=== PATIENT | male | born 1940 | race Caucasian/White ===

== ENCOUNTER → 2023-07-08 | Outpatient (CLI) | payer SELFPAY ==
[2023-07-08 17:30] LABS: Absolute Lymphocyte Count 1.78 X10^3/uL (0.83-4.51); Basophil# 0.04 X10^3/uL; Basophil% 0.5 % (0-1); Eosinophil# 0.37 X10^3/uL; Eosinophils% 4.6 % (0-5); Hematocrit 44.6 % (40-54); Hemoglobin 14.6 g/dL (13.0-16.5); Lymphocyte # 1.78 X10^3/ul (0.83-4.51); Lymphocyte % 22.2 % (19-41); Mean Corp Hgb Conc 32.7 g/dL (32-36); Mean Corpuscular Hgb 31.8 pg (27.0-32.0); Mean Corpuscular Volume 97.2 fL (80-94); Mean Platelet Vol. 10.5 fl (6.2-12.0); Monocyte# 0.78 X10^3/uL; Monocyte% 9.7 % (0-10); NRBC Flagged by Analyzer 0 % (0-5); Neutrophil # 4.99 X10^3/uL (2.7-7.7); Neutrophil % 62.4 % (47-70); Platelet Count 302 K/mm3 (150-450); RBC Distribution Width CV 14.8 % (11.6-14.6); RBC Distribution Width SD 53.4 fl (35.1-43.9); Red Blood Count 4.59 M/mm3 (4.6-6.2)
[2023-07-08 17:53] LABS: ALB/GLOB Ratio 0.9 RATIO (0.9-2.4); AST(SGOT) 23 U/L (15-37); Alanine Aminotransfer ALT/SGPT 26 U/L (16-61); Albumin, Serum 3.7 g/dL (3.2-5.0); Alkaline Phosphatase 94 U/L (45-117); Anion Gap 6 (5-15); BUN 18 mg/dL (7-18); Calcium,Total 9.3 mg/dL (8.5-10.1); Chloride 106 mmol/L (98-107); Cholesterol 226 mg/dL (200); EST Glomerular Filtration Rate 62 mL/min (>60); Est Glom Filt Rate - Afr Amer 75 mL/min (>60); Glucose 96 mg/dL (74-106); High Density Lipoprotein 31 mg/dL; Protein, Total 7.7 g/dL (6.4-8.2); Sodium Level 138 mmol/L (136-145); Triglycerides 304 mg/dL; Very Low Density Lipoprotein 61 mg/dL (5-40)
== END | disposition home or self-care (01) ==
LOC: BFHLAB 16:18
PROVIDERS: PCP Nurse Practitioner Family; Referring Provider Nurse Practitioner Family; Visit Provider Nurse Practitioner Family
DX: I10 Essential (primary) hypertension (principal); N40.0 Benign prostatic hyperplasia without lower urinary tract symptoms; E78.5 Hyperlipidemia, unspecified
CPT/HCPCS: 36415; 80053; 80061; 84153; 85025; G0103

== ENCOUNTER 2024-04-20 07:26 | Observation (INO) | payer MEDICARE, OTHER, SELFPAY ==
--- NOTE | 2024-04-07 12:11 | EKG12_ITS ---
Test Reason : PRE OP Blood Pressure : */* mmHG Vent. Rate : 63 BPM Atrial Rate : 63 BPM P-R Int : 140 ms QRS Dur : 86 ms QT Int : 378 ms P-R-T Axes : 19 11 -15 degrees QTcB Int : 386 ms Normal sinus rhythm Normal ECG Confirmed by LEW BARBOZA, HERMINIO ([id number]), assignment editor LAZARO GALVEZ ([id number]) on 04/08/2024 7:38:59 AM Referred By: Robe Murillo Confirmed By: HERMINIO HACKETT MD
[2024-04-07 13:10] LABS: Absolute Lymphocyte Count 1.43 X10^3/uL (0.83-4.51); Absolute Neutrophil Count 4.5 X10^3/uL (2.0-7.7); Basophil# 0.04 X10^3/uL; Basophil% 0.6 % (0-1); Eosinophils% 5.7 % (0-5); Hematocrit 43.8 % (40-54); Hemoglobin 14.4 g/dL (13.0-16.5); Lymphocyte # 1.43 X10^3/ul (0.83-4.51); Lymphocyte % 20.3 % (19-41); Mean Corp Hgb Conc 32.9 g/dL (32-36); Mean Corpuscular Hgb 31.7 pg (27.0-32.0); Mean Corpuscular Volume 96.5 fL (80-94); Monocyte# 0.66 X10^3/uL; Monocyte% 9.3 % (0-10); NRBC Flagged by Analyzer 0 % (0-5); Neutrophil # 4.52 X10^3/uL (2.7-7.7); Platelet Count 259 K/mm3 (150-450); RBC Distribution Width CV 14.9 % (11.6-14.6); RBC Distribution Width SD 52.9 fl (35.1-43.9); Red Blood Count 4.54 M/mm3 (4.6-6.2); White Blood Count 7.1 K/mm3 (4.4-11.0)
[2024-04-07 13:28] LABS: Magnesium 2.3 mg/dL (1.6-2.6)
[2024-04-07 13:32] LABS: Albumin, Serum 3.7 g/dL (3.2-5.0); Anion Gap 5 (5-15); BUN 16 mg/dL (7-18); BUN/Creat Ratio 13.6 RATIO (10-20); Calcium,Total 9.4 mg/dL (8.5-10.1); Chloride 109 mmol/L (98-107); Creatinine, Serum 1.18 mg/dL (0.70-1.30); EST Glomerular Filtration Rate 63 mL/min (>60); Est Glom Filt Rate - Afr Amer 76 mL/min (>60); Glucose 121 mg/dL (74-106); Sodium Level 141 mmol/L (136-145)
--- NOTE | 2024-04-14 16:08 | HP.PCM_ITS ---
History and Physical History and Physical Patient Name: Stalin Cardenas : 1940From:? PINKY GOMEZ PA-C DATE OF PRE-OPERATIVE EXAM: 04/13/2024 DATE OF SURGERY:? 04/20/2024 SCHEDULED PROCEDURE:? Direct anterior left total hip arthroplasty HISTORY OF PRESENT ILLNESS: Preoperative history and physical exam was performed on April 13, 2024.? Patient has had ongoing pain for approximately 8 months.? He had similar symptoms in his other side in which she underwent a right total hip arthroplasty in 2018.? He has no complaints of the right hip today.? Patient's pain can reach 8/10.? Pain has been intermittent, dull, sharp, and stabbing.? Pain is increased with walking and going up and down stairs.? Patient has had history of shingles in the left leg in 2008 which did result in chronic numbness from the knee down.? Patient has tried rest without relief.? He has tried oral medications including Tylenol without relief.? He has been using a cane and walker for the past several months.? Denies past history of surgery on the left hip.? He does feel the pain is affecting his sleep.? He has difficulty putting on his socks and shoes.? Difficulty with bathing/showering due to the pain.? After failing conservative measures and discussing all treatment options with Dr. Robe Murillo, the patient does wish to proceed with a direct anterior left total hip arthroplasty.? Patient has medical history pertinent for chronic obstructive pulmonary disease, history of DVT, history of pulmonary embolism, and hypertension.? Patient has obtain surgical clearance from the primary care provider Selene Lovett.? Patient has been instructed by the primary care provider to stop the warfarin 5 days prior to surgery.? He will bridge with Lovenox on day 2 and day 3 prior to surgery.? Warfarin will be resumed postoperatively.? Patient denies any recent chest pain, shortness of breath, fevers chills or recent infections. REVIEW OF SYSTEMS: Review Of Systems: Constitutional: Denies change in appetite, fever and weight change. Cardiovasular: Denies chest pain, heart murmur and irregular heartbeat. Respiratory: Denies cough, pneumonia, shortness of breath, tuberculosis and wheezing. Gastrointestinal: Denies constipation, diarrhea, heartburn, nausea, rectal itching, bloody stools and vomiting. Musculoskeletal: Reports leg swelling, but denies pain, trouble walking and weakness. Skin: Reports history of shingles, but denies Raynaud's and tattoo. Neurological: Denies ambulatory dysfunction, dizziness, numbness/tingling and tremor. Psychiatric: Denies anxiety, insomnia and stress. Hematologic/Lymphatic: Reports bleeding/bruising tendency, but denies anemia and past transfusion. Reviewed, no changes. PAST MEDICAL HISTORY: Advance Care Plan: Other Directive, LIVING WILL Effective Date: 07/15/2023 Past Medical History: Medical Problems: Chronic Obstructive Pulmonary Disease (COPD), History Of Blood Clots/ DVT, Pulmonary Embolism, Covid-19 Vaccine, High Blood Pressure Accidents: Other - (05/14/2023) left knee Surgical Hx: Cataracts - (2016) Hip Replacement Rt - (2018) [place] Anesthesia Complications: None Assistive Devices: Cane, Walker Reviewed, no changes. SOCIAL HISTORY: Social History: Marital: .Occupation: Retired.Work Status: Retired.Hand Dominance: Right-handed. Personal Habits:? Cigarette Use: Former.Smokeless Tobacco: Never Used Smokeless Tobacco.E-Cigarette Use: Never used.Alcohol: Occasionally.Drug Use: Denies Use.Enjoy Exercising: Exercises 1-3 X/Week. Reviewed, no changes. VITALS: Ht: 64 Wt: 247lb Wt k.039 BMI: 42.4 BP: 128/72 Pulse: 78 Resp: 16 T: 97.5 T: 36.4C Pain Level: 8 O2SatR: 96 ALLERGIES: Aspirin Penicillins Sulfa MEDICATIONS: Gabapentin 100 mg take 2 capsules by mouth 4 times daily for 30 days., Warfarin Sodium 6 mg take 1 tablet by mouth every day, Amlodipine Besylate/Benazepril Hydrochloride 5-20 mg take 1 capsule by mouth every day, Montelukast Sodium 10 mg take 1 tablet by mouth every day at night, Fluticasone Propionate 50 mcg/Act use 2 sprays by nasal route in the morning and at bedtime, Omeprazole 10 mg 1 by mouth every day, Rescue Inhaler? prn PRE-OP EXAM: General appearance:NORMAL? Other: Eyes: Conjunctivae and lids: NORMAL? Pupils: ERR Ears, Nose, Mouth, and Throat: NORMAL? Other: Inspection of lips, teeth and gums: NORMAL?? Other: Neck: Examination of neck: no masses noted. Respiratory: Assessment of respiratory effort: NORMAL?? Other: ? Auscultation of lungs: clear to auscultation no wheezes, rhonchi or rales. Cardiovascular:? Auscultation of heart: regular rate and rhythm, no murmurs, gallops or rubs. PHYSICAL EXAMINATION: On exam today patient walks with an antalgic gait.? Left hip is 3 mm shorter than the right hip.? Range of motion with hip flexion 70, internal rotation neutral, external rotation 30 with increased pain.? Patient has chronic numbness below the knee due to previous shingles on the left. IMAGING STUDIES: Previous x-rays of the left hip reveals joint space narrowing with marginal osteophyte with pistol plastics engineer deformity of the proximal femur left hip.? He has L4-L5 and L5-S1 disc straight narrowing with degenerative disc disease.? Left hip does appear shorter than the right hip comparing lesser trochanter.? Presence of a right total hip arthroplasty without evidence of loosening or lucencies. IMPRESSION: 1.? Left hip osteoarthritis 2.? Hypertension 3.? Chronic obstructive pulmonary disease 4.? History of DVT 5.? History of pulmonary embolism 6.? Morbid obesity with BMI 42.4 PLAN: Dr. Robe Murillo did discuss and review with the patient all treatment options including surgical versus nonsurgical options.? I will continue plan established by Dr. Robe Murillo.? Patient does wish to proceed with the above-stated procedure.? Potential risks, benefits, and complications of the procedure were discussed in detail including but not limited to , infection, nerve and blood vessel damage, persistent pain, numbness, tingling, paresthesias, blood clot, pulmonary embolism, and requirement for possible further surgery.? The patient expressed full understanding and has no further questions for the doctor.? Patient does agree to proceed with the above-stated procedure and has signed the surgery consent form. POST-OP MEDICATION PLAN: Pain Medications: Postoperative pain regimen will be initiated by Dr. Robe Murillo in the hospital.? Due to patient's BMI greater than 40.0 patient will be placed on doxycycline for 2 weeks postoperatively.? He was advised on the sensitivities to sunlight and should take appropriate precautions.? Also recommend probiotic while on the antibiotic.? Patient will follow our nutrition protocol. DVT Prophylaxis Plan: Patient has been instructed by the primary care provider to stop the Coumadin 5 days prior to surgery.? He will be bridged with Lovenox on day 2 and day 3 prior to surgery.? Coumadin will be resumed postoperatively while in the hospital.? I did advise patient on appropriate follow-ups postoperatively to make sure he is back to therapeutic level.? He voiced understanding. This dictation was created using voice recognition software. Phonetic and/or grammatical errors may exist. ___? I have re-examined the patient.? There are no clinical changes since date of exam. ___? See progress notes for changes. ___? Dictated on admission Date: ? Time: Signature:
[2024-04-20] VITALS (14 sets, daily range): BP systolic 85–132; BP diastolic 46–87; PULSE 63–95; RESP 15–18; TEMP 36.1–36.6; O2SAT 94–100; BMI 39.6; BMI 39.4; BMI 39.5
[2024-04-20 10:18] LABS: INR Fingerstick 1.2
--- NOTE | 2024-04-20 10:55 | PCM.PRE.AN2 ---
ASA Classification* ASA Classification ASA Classification: 3 Assessment & Plan Anesthesia* Anesthesia Assessment Anesthesia Assessment: Discussed sedation and/or anesthesia options, risks, benefits, and alternatives with patient/parents/legal guardian/POA. Questions invited. The patient/parents/legal guardian/POA seems to understand and agrees to proceed with anesthesia plan. Reviewed the physical assessment, medical history, allergy history and patient home medications list prior to surgery/procedure/anesthetic and documented any changes. Performed airway and anesthesia risk assessments. Anesthesia Type Anesthesia Type: Spinal (was on coumadin, INR now 1.2) Anesthesia Focused Assessment* Airway Assessment Mouth opens: >3 cm Mallampati Score: II Focused Labs Anesthesia Preop lab: CBC WBC 7.1 K/mm3 (4.4-11.0) 04/07/24 12:44 04/07/24 RBC 4.54 M/mm3 (4.6-6.2) L 04/07/24 12:44 04/07/24 Hgb 14.4 g/dL (13.0-16.5) 04/07/24 12:44 04/07/24 Hct 43.8 % (40-54) 04/07/24 12:44 04/07/24 Plt Count 259 K/mm3 (150-450) 04/07/24 12:44 04/07/24 CHEMISTRY Potassium 4.0 mmol/L (3.5-5.1) 04/07/24 12:44 04/07/24 Sodium 141 mmol/L (136-145) 04/07/24 12:44 04/07/24 Magnesium 2.3 mg/dL (1.6-2.6) 04/07/24 12:44 04/07/24 BUN 16 mg/dL (7-18) 04/07/24 12:44 04/07/24 Creatinine 1.18 mg/dL (0.70-1.30) 04/07/24 12:44 04/07/24 Glucose 121 mg/dL (74-106) H 04/07/24 12:44 04/07/24 COAG Pre-Assessment Diagnosis/Proposed Procedure Planned Operative Procedure(s): (L) Total Hip Anterior Approach Anesthesia History 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 When Was Last Pacemaker Check QUESTION #4 FULL TEXT: You/Your Family Experience fever (hyperthermia) with Anesthesia Last Oral Intake Last Oral intake: Last Oral Intake NPO since Meds taken in AM with sips of water? Meds patient instructed to take am of surgery PONV PONV - learning and development manager: PONV - learning and development manager Female No 03/27/24 11:34 HX of Motion Sickness No 03/27/24 11:34 HX of N/V After Surgery No 03/27/24 11:34 Non-Smoker Yes 03/27/24 11:34 Duration of Surgery greater Yes 03/27/24 11:34 than 60 minutes Number of Risk Factors 2 03/27/24 11:34 PONV Score Moderate Risk 03/27/24 11:34 Height & Weight Height & Weight: Anesthesia: Height & Weight Weight: 112.037 kg 04/17/24 07:37 Respiratory Assessment Respiratory Assessment - learning and development manager: Respiratory Tract Infection Hx - learning and development manager Hx Respiratory Tract Infection No 03/27/24 11:34 STOP Sleep Apnea STOP Sleep Apnea - learning and development manager: STOP Sleep Apnea - learning and development manager Hx Hypertension Yes 03/27/24 11:34 Hx Sleep Apnea No 03/27/24 11:34 CPAP BIPAP Do you snore loudly (louder No 03/27/24 11:34 than talking or can be heard Do you often feel tired/ No 03/27/24 11:34 fatigued/ sleepy during daytime? Has anyone observed you stop No 03/27/24 11:34 breathing during sleep? STOP Results Negative 03/27/24 11:34 QUESTION #5 FULL TEXT : Do you snore loudly (louder than talking or can be heard through closed doors)? 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 Specify any problems Hx of Preganancy in last 3 N/A 03/27/24 11:34 Months Nurse Filling Out Transfusion VLEHMAN 03/27/24 11:34 & Questions: Date: 03/27/24 03/27/24 11:34 Time: 11:44 03/27/24 11:34 Patient unable to answer at this time (ie. confused, unrespo /Reproduction History /Reproductive History - learning and development manager: /Reproductive Hx- learning and development manager Hx Now No 03/27/24 11:34 Gestational Age (in weeks): EDC: Hx Hx Para Hx Section SAB Active Medications Active Medications: Current Medications Generic Name Dose Route Start Last Admin Trade Name Freq PRN Reason Stop Dose Admin Acetaminophen 1,000 mg 04/20/24 12:30 Acetaminophen 500 Mg Tablet PO 04/20/24 12:31 X1 ONE Acetaminophen 1,000 mg 04/20/24 14:00 Acetaminophen 500 Mg Tablet PO Q8 [facility] Tranexamic Acid 2,000 mg/ 0 mg 04/20/24 12:30 Sodium Chloride 100 ml OPERA.SITE 04/20/24 12:31 X1 ONE Sodium Chloride 78.4 ml/ 0 ml 04/20/24 12:30 Ropivacaine 200 mg/ IV 04/20/24 12:31 Epinephrine HCl 0.6 mg/ X1 ONE Morphine Sulfate 5 mg Dexamethasone Sodium Phosphate 10 mg 04/20/24 12:30 Dexamethasone 10 Mg/Ml Vial IV 04/20/24 12:31 X1 ONE Doxycycline Monohydrate 100 mg 04/21/24 13:00 Doxycycline 100 Mg Capsule PO BID [facility] Enteral Nutritional Formula 237 ml 04/20/24 08:00 Ensure Surgery 237 Ml Liquid PO TIDCM [facility] Famotidine 20 mg 04/20/24 10:00 Famotidine 20 Mg Tablet PO DAILY [facility] Fluticasone Propionate 2 spray 04/20/24 07:25 Fluticasone 0.05% 1 [place] Nasal.Sry NASAL Q12H [facility] Gabapentin 600 mg 04/20/24 12:30 Gabapentin 600 Mg Tablet PO 04/20/24 12:31 X1 ONE Gabapentin 300 mg 04/20/24 07:30 Gabapentin 300 Mg Capsule PO Q12H [facility] Lactated Ringer's 1,000 mls @ 999 mls/hr 04/20/24 12:30 IV 04/20/24 13:30 .Q1H1M [facility] Clindamycin Phosphate 900 mg in 50 mls @ 75 mls/hr 04/20/24 12:30 Cleocin IV 04/20/24 13:09 PREOP ONE Vancomycin HCl 1,750 mg/ 535 mls @ 250 mls/hr 04/20/24 11:00 Sodium Chloride IV 04/20/24 13:08 PREOP ONE Magnesium Sulfate 1 gm/ 102 mls @ 408 mls/hr 04/20/24 12:30 Dextrose IV 04/20/24 12:44 X1 ONE Clindamycin Phosphate 600 mg in 50 mls @ 100 mls/hr 04/20/24 07:30 Cleocin IV 04/20/24 19:59 Q6H GABE Vancomycin HCl 1,750 mg/ 285 mls @ 250 mls/hr 04/20/24 07:26 Dextrose IV 04/20/24 08:25 RX TO DOSE ONE Insulin Human Lispro 1 - 6 unit 04/20/24 12:30 Insulin Lispro 100 Unit/Ml Insuln.Pen SC 04/20/24 18:30 Q4H PRN PRN BG>/= 180, SEE PROTOCOL Protocol Ketorolac Tromethamine 15 mg 04/20/24 07:26 Ketorolac 15 Mg/Ml Vial IV 04/22/24 07:27 Q6H PRN PRN Pain Score 1-5 Montelukast Sodium 10 mg 04/20/24 22:00 Montelukast 10 Mg Tablet PO QHS [facility] Morphine Sulfate 2 - 4 mg 04/20/24 07:26 Morphine 2 Mg/Ml Syringe IV Q2H PRN PRN Pain Score 4-10 Non-Formulary Medication 90 mcg 04/20/24 07:25 Albuterol INHALATION 4X/DAY PRN wheezing Non-Formulary Medication 1 cap 04/20/24 10:00 Amlodipine-Benazepril PO DAILY [facility] Ondansetron HCl 4 mg 04/20/24 07:26 Ondansetron 4 Mg/2 Ml Vial IV Q8H PRN PRN NAUSEA Pantoprazole Sodium 10 mg 04/20/24 10:00 Pantoprazole Sodium 20 Mg Tablet PO DAILY [facility] Promethazine HCl 12.5 mg 04/20/24 07:26 Promethazine 25 Mg/Ml Syringe IM Q6H PRN PRN NAUSEA/VOMITING Protocol Senna/Docusate Sodium 2 tablet 04/20/24 10:00 Senna/Docusate Sodium 1 Tablet PO BID [facility] Tamsulosin HCl 0.4 mg 04/20/24 10:00 Tamsulosin Hcl 0.4 Mg Capsule PO DAILY [facility] Tramadol HCl 50 - 100 mg 04/20/24 07:26 Tramadol 50 Mg Tablet PO Q6H PRN PRN Pain Score 4-10 Warfarin Sodium 6 mg 04/21/24 10:00 Warfarin 6 Mg Tablet PO DAILY [facility] Medical History Wears dentures Walker as ambulation aid Ambulates with cane Prostate disease High cholesterol Pulmonary embolism DVT (deep venous thrombosis) Easy bruising Gastric reflux Former smoker COPD (chronic obstructive pulmonary disease) History of edema Hypertension Home Medications ?Medication ?Instructions ?Recorded ?Last Taken ?Type albuterol 90 mcg/actuation aerosol 90 mcg inhalation 4X/DAY PRN 03/27/24 Unknown History inhaler wheezing amlodipine 5 mg-benazepril 20 mg 1 cap PO DAILY 03/27/24 Unknown History capsule fluticasone propionate 50 2 spray intranasal Q12H 03/27/24 Unknown History mcg/actuation nasal spray,suspension gabapentin 100 mg capsule 300 mg PO Q12H 03/27/24 Unknown History montelukast 10 mg tablet 10 mg PO QHS 03/27/24 Unknown History omeprazole 10 mg capsule,delayed 10 mg PO DAILY 03/27/24 Unknown History release tamsulosin 0.4 mg capsule (Flomax) 0.4 mg PO DAILY 03/27/24 Unknown History warfarin 6 mg tablet 6 mg PO DAILY 03/27/24 Unknown History Allergy/AdvReac Type Severity Reaction Status Date / Time Penicillins (PCN) Allergy Intermediate Rash Verified 03/27/24 11:22 Sulfa (Sulfonamide Allergy Mild KIDNEY Verified 03/27/24 11:22 Antibiotics) CRYSTALS aspirin (ASA) Allergy Shortness Verified 03/27/24 11:22 of breath Surgical History History of cataract extraction History of hip replacement Social History Smoking Status: Former smoker Review of Systems (Anesthesia) ROS Narrative System reviewed and no additional complaints, except as documented.
[2024-04-20] MEDS: Acetaminophen 500 MG Tablet 1000 MG PO ×2 (10:56→22:02)
[2024-04-20] MEDS: Magnesium 1 GM over 15 mins IV (10:56)
[2024-04-20] MEDS: Gabapentin 600 MG Tablet PO (10:56)
[2024-04-20] MEDS: Lactated Ringers 1,000 ML 999 ML IV (10:56)
[2024-04-20] MEDS: Vancomycin HCl 1,750 MG in 0.9% Normal Saline (500mL Bag) 500 ML 250 MG IV (11:27)
[2024-04-20 12:13] LABS: Bedside Glucose 151 mg/dL (74-106)
[2024-04-20] MEDS: Clindamycin 900 MG/50 ML BAG 75 MG IV (12:23)
--- NOTE | 2024-04-20 12:30 | HIP_PTH ---
PATIENT: FREDO CLARK LOC: [facility] U#:[id number] AGE/SX: 84/M ROOM: MA315 RE04/20/[address]: Dr. Robe Murillo MD : 1940 BED: 1 DIS: 04/22/2024 SPEC #: [id number] RECD: 04/20/24 18:12 STATUS: HILARIA SCHWAB #: [id number] ANA: 04/20/24 12:[address]: Robe Murillo DEPT: SURGICAL PATHOLOGY RECD BY: Marina Werner ENTERED: 04/21/24 09:39 SP TYPE: TOTAL HIP OTHR DR: DO Dr. Loreta Flores MD Rachel Edgar, ACCOUNTING MANAGER-C Tissues: Hip, NOS Procedures: Decalcification bone/plaque Surgery Specimen Level IV HEADER OPERATION: Total hip anterior approach PRE-OP DIAGNOSIS: Left hip osteoarthritis TISSUE SUBMITTED: Left hip bone and tissue MICROSCOPIC DIAGNOSIS Left hip bone and soft tissue, total hip replacement/resection: Femoral head with mild degenerative osteoarthritic changes. SJ: 04/24/2024 MICROSCOPIC DESCRIPTION Slides are reviewed. GROSS DESCRIPTION Received is one container labeled with the patient's name and designated bone and soft tissue left hip. The specimen consists of a krueger femoral head. The femoral head measuring in length 5.5cm and in diameter 5cm. The surface of the head shows that much of the cartilage has been rubbed off and an area is marked for sectioning and offer proper decalcification is submitted in cassette 1. A separate fragment of bone measuring 4.0 x 3.0 x 1.0cm is also present in the container as well as some soft tissue fragments, reddish and whiteish. The soft tissue fragments aggregate to approximately 2-3cm and community representative sections are submitted in cassette 2. NANY. 04/21/2024 TC: 5 CPT: 79266,54006
[2024-04-20] MEDS: dexAMETHasone 10 MG/ML Vial IV (13:04)
--- NOTE | 2024-04-20 13:30 | RAD_ITS ---
PROCEDURE: Fluoroscopy less than 1 hour REASON FOR EXAM: Hip prosthesis, arthritis TECHNIQUE: 4 fluoroscopic images were submitted. Fluoroscopy time was 7.2 seconds. Peak skin radiation dose was 1.7 mGy. COMPARISON: 04/20/2024 FINDINGS: See impression RAD/Hip 1 view with Pelvis IMPRESSION: Placement of a left hip prosthesis with anatomic alignment. See operative report for further details. Reading Location: [facility]
[2024-04-20] MEDS: TXA in NS 100ml (Placed in Wound) OPERA.SITE (13:50)
[2024-04-20] MEDS: Joint Pain Solution (NO KETOROLAC) IV (13:50)
--- NOTE | 2024-04-20 14:04 | PCM.OPRPT ---
Operative Report (Standard) Operative Information Date of Procedure: 04/20/24 Pre-Operative Diagnosis: Left hip primary osteoarthritis Post-Operative Diagnosis: Left hip primary osteoarthritis Surgery/Procedure Performed: Left minimally invasive direct anterior hip replacement media intern: Yes Grinding [employer] Pol[employer] Laborer: Sal Castillo Tasks completed by credentialing assistant: Other (See body of operative report) Additional child care center assistant director?: No Type of Anesthesia: Spinal RN Documented Start/Stop Times: Operation Date: 04/20/24 12:30 Case Time Into Pre-Op 04/20/24 10:13 Anesthesia Start 04/20/24 12:23 Into Room 04/20/24 12:23 Procedure Start 04/20/24 12:53 Procedure End 04/20/24 14:27 Anesthesia End 04/20/24 14:33 Out of Room 04/20/24 14:33 Into Recovery 04/20/24 14:39 Procedure Start Time: 12:53 Procedure Stop Time: 14:27 Select all DRAINS/GRAFTS/IMPLANTS that apply: Prosthetic device Prosthetic device details: See body of operative report Special Medications: Cleocin and vancomycin Estimated Blood Loss: 300 mL Fluids Replaced: 1300 mL crystalloid Specimen collected: Yes Description of specimen(s) removed: Bony cuts Description of surgery: Components used: 1. Insignia [place] femoral stem size 3 high offset 2. Anisa trident 2 acetabular shell size 48 mm 3. Anisa X3 polyethylene 38D 4. Anisa Biolox delta 28 mm, +4 mm femoral head 5. Anisa MDM alpha code E cobalt-chromium liner Brief history operative indications: 84 yo m who failed conservative measures for their hip osteoarthritis. X-rays were consistent with osteoarthritis including joint space narrowing, osteophyte formation and subchondral cysts. Total hip replacement was discussed with the patient with risks and benefits including but not limited to blood loss, DVTs, PEs, neurovascular damage, dislocation, general risks of anesthesia including loss of life. Patient demonstrated an understanding medical clearance is obtained the patient was consented for surgery. Procedure: On the date of procedure the patient's L hip was marked in the preoperative area. Patient was then taken back to the operating room where anesthesia assumed control of the C-spine and airway and administered anesthetic. Patient was transferred to the operating table and placed in the supine position. The hips were placed at the break of the bed and a sacral bump was placed. The L lower extremity was then prepped out in a sterile fashion using chlorhexidine while the surgeon scrubbed. The PA was vital in the positioning of the patient. Upon reentering the room the L lower extremity was draped in the standard orthopedic fashion and the incision was marked. A timeout was called and everyone agreed upon the side, the site, the procedure be performed, antibody given, and patient's identity. At this time incision was made through skin, subcutaneous tissue, and fat down to fascia. The fascia was then incised and the TFL was retracted laterally. A retractor was placed on the lateral border of the femoral neck. Attention was directed to the inferior portion of the approach and all crossing vessels were identified and appropriately coagulated. A retractor was then placed on the medial portion of the femoral neck. The anterior capsule was then cleared of all soft tissue and then H shaped capsulotomy was made. The retractors were then placed inside the capsule. The femoral neck was identified and a cleanup cut was made. At this time a power corkscrew was used to remove the femoral head. Attention was then turned toward the acetabulum where the soft tissues were appropriately retracted and the acetabulum was sequentially reamed to 48 mm. A 48 mm cup was then selected and impacted into place. Acetabular liner was impacted into place and locking mechanism was verified. The position of the acetabular cup was then verified under live fluoroscopy. Attention was then turned to the femur. Soft tissue releases on the medial and lateral femoral neck were appropriately done, the leg was externally rotated and lateralized. A Aguilera retractor was placed medially and proximally to the greater trochanter this allowed appropriate visualization and exposure of the femoral canal. Rongeour was then used to remove excess lateral bone. A canal finder and entry broach were used to open the proximal canal. Once we verified we were down the femoral canal we subsequently broached up to a size 3 femur. The appropriate neck was placed in the previously selected head was trialed with a 4 mm neck. Traction was pulled and the hip was reduced with internal rotation. Once it was appropriately reduced and stability was checked. There was minimal shuck, equal leg lengths and appropriate stability with hyperextension and external rotation as well as with 90? flexion and internal rotation. Fluoroscopy was then also used to verify the position of the components and leg lengths using the contralateral side for comparison. The trial components were then dislocated the proximal femur was again exposed and the components were removed from the wound. The final components were verified and opened. The wound was copiously irrigated out with normal saline. The acetabulum was checked for any residual debris. The final components were placed and impacted. Traction and internal rotation were again used to reduce the hip. After adequate reduction the hip remained stable with appropriate leg lengths. The final components were once again checked with live fluoroscopy and were found to be satisfactory. The wound was then copiously irrigated with normal saline once more, and hemostasis was obtained. Closure was then done using #1 Vicryl runner to close the fascia. A 2-0 vicryl interuppted sutures were used to close the subcutaneous skin. A 3-0 Monocryl and Steri-Strips were used for final skin closure. A Silverlon dressing was placed. Patient was awakened by anesthesia and transferred to the [facility]. Patient was then transferred to the PACU for recovery. Postoperative plan: Patient will get 24 hours postop antibiotics. Patient will get in-house physical therapy and will be weight-bear as tolerated. Patient will follow up in office in 2 weeks for a wound check and x-rays. Resume Coumadin for DVT prophylaxis. Surgical Findings: Stable hip Complications Complications: No Admit VTE Documentation VTE Present on Admission: No VTE Mechan Device Prophylaxis: SCD's and Thigh High NITESH Hose VTE Pharm Prophylaxis ordered?: Yes
--- NOTE | 2024-04-20 14:44 | PCM.POST.ANE ---
Anesthesia: Postop Eval I Current Vital Signs Temperature: 97 F Pulse Rate: 79 Blood Pressure: 89/46 Respiratory Rate: 18 Pulse Ox: 96 Oxygen Delivery Method: Room Air Assessment Airway patent: Yes Spontaneous unlabored respirations: Yes Mental status: Awake and Calm nausea: No Vomiting: No Anesthesia Complication: No Fluid Hydration Crystalloid volume administer (ml): 1,600 Total IV fluid infused: 1,600 Progress Note Anesthesia document: Postop Eval 1 completed: Yes
--- NOTE | 2024-04-20 14:50 | RAD_ITS ---
EXAM: HIP MIN 2 VIEWS (PORTABLE) CLINICAL HISTORY: Left total hip replacement. COMPARISON: Comparison is made with prior intraoperative images. TECHNIQUE: Two views were obtained. FINDINGS: Status post left total hip replacement. There is good alignment. Postoperative soft tissue changes. RAD/Hip Min 2 Views (Portable) IMPRESSION: Status post left total hip replacement. There is good alignment. Postoperative soft tissue changes. Reading Location: [facility]
--- NOTE | 2024-04-20 15:55 | POSTOPAN2_ITS ---
Anesthesia Postop Eval I Sum Postop Eval Completion status Anesthesia document: Postop Eval 1 completed: Yes Anesthesia Postop Eval I Summary Anesthesia Postop Eval I Summary: Anesthesia Postop Eval I: Assessment Summary Airway patent Yes 04/20/24 14:45 DATE [email or web address] Spontaneous unlabored Yes 04/20/24 14:45 DATE [email or web address] respirations Mental status Awake,Calm 04/20/24 14:45 DATE [email or web address] nausea No 04/20/24 14:45 DATE [email or web address] Vomiting No 04/20/24 14:45 DATE [email or web address] Anesthesia Postop Eval I: Fluid Summary Crystalloid volume administer 1,600 04/20/24 14:45 DATE [email or web address] (ml) Colloids volume administered ( ml) Blood Product volume administered (ml) Total IV fluid infused 1,600 04/20/24 14:45 DATE [email or web address] Anesthesia Postop Eval I: Summary Notes Anesthesia Complication No 04/20/24 14:45 DATE [email or web address] Anesthesia Complication Comment: Post-operative progress note Anesthesia: Postop Eval II Evaluation Mental status: Awake Pain Level: 0 nausea: No Vomiting: No
--- NOTE | 2024-04-20 15:55 | PCM.POSTANE2 ---
Anesthesia Postop Eval I Sum Postop Eval Completion status Anesthesia document: Postop Eval 1 completed: Yes Anesthesia Postop Eval I Summary Anesthesia Postop Eval I Summary: Anesthesia Postop Eval I: Assessment Summary Airway patent Yes 04/20/24 14:45 [email or web address] Spontaneous unlabored Yes 04/20/24 14:45 [email or web address] respirations Mental status Awake,Calm 04/20/24 14:45 [email or web address] nausea No 04/20/24 14:45 PET [email or web address] Vomiting No 04/20/24 14:45 [email or web address] Anesthesia Postop Eval I: Fluid Summary Crystalloid volume administer 1,600 04/20/24 14:45 [email or web address] (ml) Colloids volume administered ( ml) Blood Product volume administered (ml) Total IV fluid infused 1,600 04/20/24 14:45 PET [email or web address] Anesthesia Postop Eval I: Summary Notes Anesthesia Complication No 04/20/24 14:45 [email or web address] Anesthesia Complication Comment: Post-operative progress note Anesthesia: Postop Eval II Evaluation Mental status: Awake Pain Level: 0 nausea: No Vomiting: No
[2024-04-20] MEDS: 0.9% Normal Saline (1000mL) 1,000 ML 15 ML IV (16:11)
[2024-04-20] MEDS: Tamsulosin HCl 0.4 MG Capsule PO (17:30)
[2024-04-20] MEDS: Pantoprazole Sodium 20 MG Tablet PO (17:30)
[2024-04-20] MEDS: Ensure Surgery 237 ML LIQUID PO (17:33)
[2024-04-20] MEDS: Clindamycin 600 MG/50 ML BAG 100 MG IV (17:34)
--- NOTE | 2024-04-20 20:59 | PCM.PN.HOSP ---
Reason for Visit Reason for Visit: Diagnoses Encounter for other preprocedural examination (04/20/24) Subjective Subjective 84-year-old male with a history of hypertension, GERD, BPH, VTE who presented [facility] 04/20/2024 for left hip arthroplasty. Hospitalist consulted for postoperative medical management. Patient evaluated at bedside and reports overall he is feeling well but does have to urinate, no other new acute complaints Objective Data Objective Data Vital Signs: Vital Signs Temp Pulse Resp BP Pulse Ox O2 Del Method O2 Flow Rate 97.9 F 95 15 132/69 H 94 Room Air 4 04/20/24 20:33 04/20/24 20:33 04/20/24 20:33 04/20/24 20:33 04/20/24 20:33 04/20/24 20:33 04/20/24 16:27 Oxygen Flow Rate (L/min) 4 Oxygen Delivery Method Room Air Weight: 111.5 kg Body Mass Index (BMI) 39.4 Intake & Output: Intake and Output for Last 24 Hours 04/18/24 04/19/24 04/20/24 23:59 23:59 23:59 Intake Total 2737 / 2737 Balance 2737 / 2737 Lab / Micro Data 04/07/24 12:44 04/07/24 12:44 Labs: Laboratory Results - last 24 hr 04/20/24 10:14: POC PT 14.0, INR 1.2 04/20/24 10:53: POC Glucose 151 H Micro: Microbiology 04/07/24 12:44 Nasal Secretion Nasal Screen MRSA/MSSA - Final Radiography Diagnostic Testing: Radiology Impression Hip/Pelvis X-Ray 04/20/24 13:30 IMPRESSION: Placement of a left hip prosthesis with anatomic alignment. See operative report for further details. [facility] 04/20/24 14:50 IMPRESSION: Status post left total hip replacement. There is good alignment. Postoperative soft tissue changes. Reading Location: [facility] Physical Exam Narrative General: Alert, oriented, no apparent distress HEENT: Atraumatic, normocephalic Eyes: extraocular movements grossly intact Neck: Supple Respiratory: normal respiratory effort Cardiovascular: no edema appreciated GI: nondistended Extremities: Moving all extremities Neuro: No overt focal neurological deficits Psych: Cooperative Assessment & Plan Assessment/Plan (1) Prostate disease: PLAN: Plan # History of VTE -Coumadin was stopped 5 days prior to surgery, patient will be bridged with Lovenox per Ortho documentation and Coumadin resumed postoperatively. #GERD -Continue PPI #Chronic BPH with obstruction -Continue home medications #Hypertension -Blood pressure little soft postoperatively at 97/51 but improved to 132/69 # Left hip osteoarthritis -Status post left minimally invasive direct anterior hip replacement with Dr. Murillo 04/20/2024 -PT/OT -Management per primary #DVT ppx: At timing to discretion of primary Loreta Herrera MD Time spent in the patient's overall evaluation, decision-making process, review of diagnostic data, adjustment of management, discussion with other providers, nursing and ancillary staff involved in patient's care documentation, 15 Minutes Charges/Coding Visit Charges Office Visits / Consults: 28880 OV L2 Est 10min
[2024-04-20] MEDS: Senna/Docusate Sodium 1 Tablet 2 TABLET PO (22:03)
[2024-04-20] MEDS: Gabapentin 300 MG Capsule PO (22:03)
[2024-04-20] MEDS: Montelukast 10 MG Tablet PO (22:03)
[2024-04-20] MEDS: Fluticasone 0.05% 1 SPRAY NASAL.SRY 2 SPRAY NASAL (22:06)
[2024-04-20] MEDS: Vancomycin HCl 1,250 MG in 0.9% Normal Saline (250mL Bag) 250 ML 167 MG IV (23:26)
[2024-04-21 00:58] VITALS: BMI 39.5
[2024-04-21] MEDS: Clindamycin 600 MG/50 ML BAG 100 MG IV ×2 (01:31→08:54)
[2024-04-21 03:45] VITALS: BMI 39.5
[2024-04-21 06:38] LABS: Hematocrit 37.5 % (40-54); Hemoglobin 12.2 g/dL (13.0-16.5); Mean Corp Hgb Conc 32.5 g/dL (32-36); Mean Corpuscular Hgb 31.7 pg (27.0-32.0); Mean Corpuscular Volume 97.4 fL (80-94); Mean Platelet Vol. 10.3 fl (6.2-12.0); Platelet Count 246 K/mm3 (150-450); RBC Distribution Width CV 14.6 % (11.6-14.6); RBC Distribution Width SD 52.3 fl (35.1-43.9); Red Blood Count 3.85 M/mm3 (4.6-6.2); White Blood Count 16.3 K/mm3 (4.4-11.0)
[2024-04-21 07:11] LABS: Anion Gap 10 (5-15); BUN 18 mg/dL (7-18); BUN/Creat Ratio 14.5 RATIO (10-20); Calcium,Total 9.3 mg/dL (8.5-10.1); Chloride 107 mmol/L (98-107); Creatinine, Serum 1.24 mg/dL (0.70-1.30); EST Glomerular Filtration Rate 59 mL/min (>60); Est Glom Filt Rate - Afr Amer 72 mL/min (>60); Estimated Creatinine Clearance 53.84 ml/min; Glucose 167 mg/dL (74-106); Potassium 4.6 mmol/L (3.5-5.1); Sodium Level 139 mmol/L (136-145)
[2024-04-21 07:29] VITALS: O2SAT 92
--- NOTE | 2024-04-21 07:29 | PN.ORTHO_ITS ---
Subjective Subjective Patient appears to be comfortable in bed. Patient states that he has not yet been up working with physical therapy. Patient denies any shortness of breath, chest pain, calf pain, fever, chills, dizziness, nausea, vomiting. Patient denies any adverse events overnight. Patient states that he is currently getting anterior thigh spasms that can be an 8-10 out of 10. Patient states that the tablet Tylenol is not helping the pain and he would rather have capsules. Patient states that he does not want to take any of the tramadol. Patient was educated on the importance of good pain control. Patient states that at this time he cannot stop pain and keeps having to get up to use the bedside commode rather than going to the restroom. Objective Data Objective Data Vital Signs: Vital Signs Temp Pulse Resp BP Pulse Ox O2 Del Method O2 Flow Rate 97.9 F 95 15 132/69 H 92 Room Air 4 04/20/24 20:33 04/20/24 20:33 04/20/24 20:33 04/20/24 20:33 04/21/24 07:29 04/21/24 07:29 04/20/24 16:27 Oxygen Flow Rate (L/min) 4 Oxygen Delivery Method Room Air Weight: 111.5 kg Body Mass Index (BMI) 39.4 Intake & Output: Intake and Output for Last 24 Hours 04/19/24 04/20/24 04/21/24 23:59 23:59 23:59 Intake Total 2737 / 2737 325 / 325 Balance 2737 / 2737 325 / 325 Lab / Micro Data 04/21/24 05:17 04/21/24 05:17 Labs: Laboratory Results - last 24 hr 04/20/24 10:14: POC PT 14.0, INR 1.2 04/20/24 10:53: POC Glucose 151 H 04/21/24 05:17: WBC 16.3 H, RBC 3.85 L, Hgb 12.2 L, Hct 37.5 L, MCV 97.4 H, MCH 31.7, MCHC 32.5, RDW Std Deviation 52.3 H, RDW Coeff of Therese 14.6, Plt Count 246, MPV 10.3, Sodium 139, Potassium 4.6, Chloride 107, Carbon Dioxide 23.0, Anion Gap 10, BUN 18, Creatinine 1.24, Estim Creat Clear Calc 53.84, Est GFR (MDRD) Af Amer 72, Est GFR (MDRD) Non-Af 59 L, BUN/Creatinine Ratio 14.5, Glucose 167 H, Calcium 9.3 Micro: Microbiology 04/07/24 12:44 Nasal Secretion Nasal Screen MRSA/MSSA - Final Radiography Diagnostic Testing: Radiology Impression Hip/Pelvis X-Ray 04/20/24 13:30 IMPRESSION: Placement of a left hip prosthesis with anatomic alignment. See operative report for further details. Reading Location: [facility] Hip X-Ray 04/20/24 14:50 IMPRESSION: Status post left total hip replacement. There is good alignment. Postoperative soft tissue changes. Reading Location: [id number] Physical Exam Narrative 1. NITESH hose in place bilaterally. 2. SCDs in place bilaterally. 3. Dressing is clean dry and intact. 4. Prevena wound VAC in place. 5. Right hip is soft and supple. 6. Dorsiflexion and plantarflexion are performed actively without pain or restriction. 7. Sensation intact to light touch. 8. Neurovascularly intact overall. 9. Negative Homans bilaterally. Const alert, oriented x3 and no apparent distress Assessment & Plan Assessment/Plan (1) Status post total hip replacement, right: PLAN: 1. DVT prophylaxis: Patient will be on regular dose of preoperative warfarin for DVT prophylaxis. Patient will be wearing NITESH hose for 2 weeks postoperatively. Patient states that he does have concerns that his will not be able to be of much help with the NITESH hose. 2. Pain medications: Patient was instructed that he can take Tylenol 1000 mg every 8 hours [id number] taking no more than 3000 mg in 24 hours. Patient was then instructed to take her tramadol as needed for breakthrough pain. OARRS report was reviewed today. The risk of abuse potential for narcotic pain medication was discussed and reviewed. Patient was advised not to drive a motor vehicle or operate heavy equipment while taking narcotic pain medication. Patient voiced understanding. 3. Constipation: Patient was instructed to take senna as instructed until his first bowel movement to decrease risk of impaction following surgery. Patient was instructed if they have not yet had bowel movement in 3 days to call our office for reevaluation. 4. Physical therapy: Patient has not yet worked with physical therapy. Patient states that he has been up using the bedside commode and has walked to the bathroom once or twice. I would like patient to work with physical therapy for evaluation prior to discharge. Appreciate recommendations for safe and appropriate discharge from physical therapy. 5. Labs: H&H: 12.2/37.5. 6. Incentive spirometer: Patient was encouraged to use incentive spirometer every hour that they are awake for the first week to exercise along decrease risk of postoperative infection. 7. Dressings: Patient currently has wound VAC in place. Prevena wound VAC instructions were given as to keep in place for 1 week. Patient was educated not to get the wound VAC wet and to sponge bathe for 1 week. Patient was educated that this is disposable and then may remove and discard after 1 week. Patient was understanding. 8. Postoperative instructions: Patient will follow postoperative instructions as well as follow-up per [facility] postoperative instructions. 9. Medicines involvement: Appreciate recommendations from medicine for safe and proper discharge. 10. Patient will be on doxycycline for 2 weeks postoperatively due to BMI. Patient was educated on the risk of sunburn while taking doxycycline. Patient was encouraged to take a probiotic while taking doxycycline. Patient voiced understanding. 11. Reactive leukocytosis: White blood cell count was 16.3. Vital signs are afebrile and patient is not experiencing symptoms at this time. 12. GFR: Estimated GFR is 59 which is a drop from preoperative 63. We will avoid nonsteroidal anti-inflammatories at this time. Appreciate recommendations from medicine. 13. I believe that patient would benefit from a another night stay in the hospital. Patient has not yet worked with physical therapy. Appreciate recommendations from physical therapy for safe and proper discharge. Patient does have some concerns with safety going home at this time. Patient states that he is not sure of how much help his will be due to her also having some troubles and potentially not having the strength to help care for him. We will reevaluate patient tomorrow to assess for safe and proper discharge home after working with physical therapy.
[2024-04-21] MEDS: Acetaminophen 500 MG Tablet 1000 MG PO ×2 (08:54→22:07)
[2024-04-21 08:58] VITALS: BP 149/71; PULSE 94; RESP 16; TEMP 36.7
--- NOTE | 2024-04-21 09:52 | CASEMGMT ---
Met with patient to complete LUGO form. LUGO form explained to patient who voiced understanding and signed form. Original form placed in pt?s chart and copy provided to patient. Lucero Alonzo, Discharge Planning Asst
[2024-04-21] MEDS: Tamsulosin HCl 0.4 MG Capsule PO (10:13)
[2024-04-21] MEDS: Fluticasone 0.05% 1 SPRAY NASAL.SRY 2 SPRAY NASAL ×2 (10:14→22:13)
[2024-04-21] MEDS: amLODIPine 5 MG Tablet PO (10:16)
[2024-04-21] MEDS: Famotidine 20 MG Tablet PO (10:16)
[2024-04-21] MEDS: Pantoprazole Sodium 20 MG Tablet PO (10:17)
[2024-04-21] MEDS: Senna/Docusate Sodium 1 Tablet 2 TABLET PO ×2 (10:17→22:07)
[2024-04-21] MEDS: Lisinopril 20 MG Tablet PO (10:18)
[2024-04-21] MEDS: traMADol 50 MG Tablet PO ×2 (10:19→16:19)
[2024-04-21] MEDS: Gabapentin 300 MG Capsule PO ×2 (10:22→22:07)
--- NOTE | 2024-04-21 10:27 | CASEMGMT ---
Social Work- SDOH erroneously triggered by nurse. Pt reports no safety concerns. SW remains available to follow for any other needs. DAVIS Vazquez
--- NOTE | 2024-04-21 10:55 | PCM.PN.HOSP ---
Reason for Visit Reason for Visit: Diagnoses Disorder of prostate, unspecified (04/20/24) Encounter for other preprocedural examination (04/20/24) Presence of right artificial hip joint (04/20/24) Subjective Subjective Saw patient at bedside this morning. Sitting back in bed and mildly fatigued. But otherwise conversing normally. Stated he has ongoing left hip and thigh pain this morning and has not worked with physical therapy yet due to this pain. Pain medication was starting to kick in when I saw him and he was feeling slightly improved. He denied any other new concerns today. Objective Data Objective Data Vital Signs: Vital Signs Temp Pulse Resp BP Pulse Ox O2 Del Method O2 Flow Rate 97.9 F 95 15 132/69 H 92 Room Air 4 04/20/24 20:33 04/20/24 20:33 04/20/24 20:33 04/20/24 20:33 04/21/24 07:29 04/21/24 07:29 04/20/24 16:27 Oxygen Flow Rate (L/min) 4 Oxygen Delivery Method Room Air Weight: 111.5 kg Body Mass Index (BMI) 39.4 Intake & Output: Intake and Output for Last 24 Hours 04/19/24 04/20/24 04/21/24 23:59 23:59 23:59 Intake Total 2737 / 2737 325 / 325 Balance 2737 / 2737 325 / 325 Lab / Micro Data 04/21/24 05:17 04/21/24 05:17 Labs: Laboratory Results - last 24 hr 04/20/24 10:53: POC Glucose 151 H 04/21/24 05:17: WBC 16.3 H, RBC 3.85 L, Hgb 12.2 L, Hct 37.5 L, MCV 97.4 H, MCH 31.7, MCHC 32.5, RDW Std Deviation 52.3 H, RDW Coeff of Therese 14.6, Plt Count 246, MPV 10.3, Sodium 139, Potassium 4.6, Chloride 107, Carbon Dioxide 23.0, Anion Gap 10, BUN 18, Creatinine 1.24, Estim Creat Clear Calc 53.84, Est GFR (MDRD) Af Amer 72, Est GFR (MDRD) Non-Af 59 L, BUN/Creatinine Ratio 14.5, Glucose 167 H, Calcium 9.3 Micro: Microbiology 04/07/24 12:44 Nasal Secretion Nasal Screen MRSA/MSSA - Final Radiography Diagnostic Testing: Radiology Impression Hip/Pelvis X-Ray 04/20/24 13:30 IMPRESSION: Placement of a left hip prosthesis with anatomic alignment. See operative report for further details. Reading Location: [facility] Hip X-Ray 04/20/24 14:50 IMPRESSION: Status post left total hip replacement. There is good alignment. Postoperative soft tissue changes. Reading Location: [facility] Physical Exam Const alert, oriented x3 and no apparent distress Constitutional Narrative: Elderly male, class II obesity, mildly fatigued appearing but otherwise laying back comfortably in bed, conversing normally, in no acute distress. General Appearance: cooperative and comfortable HEENT normocephalic, head/scalp atraumatic, hearing grossly normal bilaterally, nasal mucous membranes and turbinates normal and moist oral mucous membranes Eyes PERRL, EOMs intact bilaterally and conjunctivae normal Neck full ROM Chest inspection of chest normal Resp normal respiratory effort, normal air movement, no use of accessory muscles and clear to auscultation bilaterally Cardio regular rate, regular rhythm, no murmurs and peripheral pulses 2+ throughout GI normal to inspection, nondistended, normoactive bowel sounds, soft to palpation, non-tender and non-distended Back/Spine normal ROM Extremity Extremity Narrative: Left hip with dressing and ice pack in place. Skin no rashes or lesions noted Neuro Speech: speech normal Psych mental status grossly normal Assessment & Plan Assessment/Plan (1) Status post left hip replacement: PLAN: Plan Patient is an 84-year-old male who presented [facility] on 04/20/2024 for planned left hip replacement. Medicine consulted postoperatively for medical management. 1. Left hip osteoarthritis ? Orthopedic surgery primary. S/p left hip replacement on 04/[address] Murillo. Tolerated procedure well, no intraoperative complications. PT/OT/case management following. Further postop management per orthopedics. 2. History of VTE ? Coumadin stopped 5 days prior to surgery. Will be bridged with Lovenox back to therapeutic INR 2-3 for orthopedic documentation and Coumadin resumed postoperatively. 3. GERD ? Continue home PPI. 4. Chronic BPH with obstructive symptoms ? Continue home Flomax. 5. Hypertension ? Blood pressure mildly soft postoperatively but back to baseline by that evening. Continue home amlodipine and lisinopril. DVT prophylaxis: Per primary team Total clinical time spent by myself addressing the patient's medical issues, reviewing all the data, and collaborating with patient's care team: 25 minutes. Charges/Coding Visit Charges Inpatient E&M: 90830 Subs Hosp L1
--- NOTE | 2024-04-21 11:00 | CASEMGMT ---
KATHERINE MENDEZ Assessment: Face to Face with pt for initial transition planning/care coordination assessment. KATHERINE MENDEZ introduced self and role at [facility], pt voices understanding and consents to assessment. Pt is A&O x4 and answers all questions appropriately at this time. Pt sitting up in bed in no distress. Care providers, pharmacy, and demographics verified/updated. Admitting Dx: Total Hip Strata Score: 1 PCP:[facility] Specialists:michael Murillo Preferred Pharmacy: [facility] Insurance: [email or web address], [employer] Pres[employer] Benefit: yes LNOK: Orajanay Noonan, sig other Living Arrangements: Pt lives with sig other in a split level home with 3 steps to enter. Pt reports prior to surgery he was I in ADLs/IADLs. Pt denies concerns at home. Transportation: Pt drives self and denies concerns with transportation. Ora to transport pt until he can drive again. DME:shower chair, 4ww, cane HHC/SNF: Denies hx of Pt states no concerns with going home at time of dc. Therapy has not eval'd pt yet. Pt states he has outpt therapy set up at [facility] on 04/23/24. Pt states no further concerns/needs. CM to follow. Advised pt to ask CM if any further questions/concerns/needs arise, voices understanding. Pt Goal: Home with outpt therapy Plan: TBD pending therapy rohan Hearn RN, CM
[2024-04-21] MEDS: Doxycycline 100 MG CAPSULE PO ×2 (13:36→22:07)
[2024-04-21 14:54] VITALS: BP 127/58; PULSE 93; RESP 17; TEMP 37.3; O2SAT 94
[2024-04-21 20:58] VITALS: BMI 39.5
[2024-04-21 22:00] VITALS: BP 124/66; PULSE 91; RESP 15; TEMP 37.1; O2SAT 95
[2024-04-21] MEDS: Montelukast 10 MG Tablet PO (22:07)
[2024-04-22 05:00] VITALS: BP 133/76; PULSE 97; RESP 16; TEMP 37.6; O2SAT 97
[2024-04-22] MEDS: Acetaminophen 500 MG Tablet 1000 MG PO (05:49)
[2024-04-22 06:05] LABS: Hematocrit 36.7 % (40-54); Mean Corp Hgb Conc 32.7 g/dL (32-36); Mean Corpuscular Hgb 32.6 pg (27.0-32.0); Mean Corpuscular Volume 99.7 fL (80-94); Mean Platelet Vol. 10.2 fl (6.2-12.0); Platelet Count 239 K/mm3 (150-450); RBC Distribution Width CV 15.5 % (11.6-14.6); RBC Distribution Width SD 56.9 fl (35.1-43.9); Red Blood Count 3.68 M/mm3 (4.6-6.2); White Blood Count 18.4 K/mm3 (4.4-11.0)
[2024-04-22 08:30] VITALS: BP 148/79; PULSE 98; RESP 16; TEMP 37; O2SAT 97
[2024-04-22] MEDS: Doxycycline 100 MG CAPSULE PO (08:52)
[2024-04-22] MEDS: Fluticasone 0.05% 1 SPRAY NASAL.SRY 2 SPRAY NASAL (08:53)
[2024-04-22] MEDS: Pantoprazole Sodium 20 MG Tablet PO (08:55)
[2024-04-22] MEDS: amLODIPine 5 MG Tablet PO (08:56)
[2024-04-22] MEDS: Lisinopril 20 MG Tablet PO (08:56)
[2024-04-22] MEDS: Senna/Docusate Sodium 1 Tablet 2 TABLET PO (08:56)
[2024-04-22] MEDS: Famotidine 20 MG Tablet PO (08:56)
[2024-04-22] MEDS: Gabapentin 300 MG Capsule PO (08:58)
--- NOTE | 2024-04-22 11:01 | PCM.PN.HOSP ---
Reason for Visit Reason for Visit: Diagnoses Disorder of prostate, unspecified (04/20/24) Encounter for other preprocedural examination (04/20/24) Presence of right artificial hip joint (04/20/24) Presence of left artificial hip joint (04/20/24) Subjective Subjective Saw patient at bedside this morning. Patient sitting up comfortably in bedside chair and states he feels much improved today from yesterday. Pain control is much better. No other new concerns today. Objective Data Objective Data Vital Signs: Vital Signs Temp Pulse Resp BP Pulse Ox O2 Del Method O2 Flow Rate 99.6 F H 97 16 133/76 H 97 Room Air 4 04/22/24 05:00 04/22/24 05:00 04/22/24 05:00 04/22/24 05:00 04/22/24 05:00 04/22/24 05:00 04/20/24 16:27 Oxygen Flow Rate (L/min) 4 Oxygen Delivery Method Room Air Weight: 111.5 kg Body Mass Index (BMI) 39.4 Intake & Output: Intake and Output for Last 24 Hours 04/20/24 04/21/24 04/22/24 23:59 23:59 23:59 Intake Total 2737 / 2737 375 / 375 Balance 2737 / 2737 375 / 375 Lab / Micro Data 04/22/24 05:32 04/21/24 05:17 Labs: Laboratory Results - last 24 hr 04/22/24 05:32: WBC 18.4 H, RBC 3.68 L, Hgb 12.0 L, Hct 36.7 L, MCV 99.7 H, MCH 32.6 H, MCHC 32.7, RDW Std Deviation 56.9 H, RDW Coeff of Therese 15.5 H, Plt Count 239, MPV 10.2 Micro: Microbiology 04/07/24 12:44 Nasal Secretion Nasal Screen MRSA/MSSA - Final Physical Exam Const alert, oriented x3 and no apparent distress Constitutional Narrative: Elderly male, class II obesity, energy improved today, sitting up in bedside chair, conversing normally, in no acute distress. General Appearance: cooperative and comfortable HEENT normocephalic, head/scalp atraumatic, hearing grossly normal bilaterally, nasal mucous membranes and turbinates normal and moist oral mucous membranes Eyes PERRL, EOMs intact bilaterally and conjunctivae normal Neck full ROM Chest inspection of chest normal Resp normal respiratory effort, normal air movement, no use of accessory muscles and clear to auscultation bilaterally Cardio regular rate, regular rhythm, no murmurs and peripheral pulses 2+ throughout GI normal to inspection, nondistended, normoactive bowel sounds, soft to palpation, non-tender and non-distended Back/Spine normal ROM Extremity Extremity Narrative: Left hip with dressing and ice pack in place. Skin no rashes or lesions noted Neuro Speech: speech normal Psych mental status grossly normal Assessment & Plan Assessment/Plan (1) Status post left hip replacement: PLAN: Plan Patient is an 84-year-old male who presented [facility] on 04/20/2024 for planned left hip replacement. Medicine consulted postoperatively for medical management. 1. Left hip osteoarthritis ? Orthopedic surgery primary. S/p left hip replacement on 04/[address] Murillo. Tolerated procedure well, no intraoperative complications. PT/OT/case management following. Further postop management per orthopedics. Stable for discharge from medical standpoint. 2. History of VTE ? Coumadin stopped 5 days prior to surgery. Will be bridged with Lovenox back to therapeutic INR 2-3 for orthopedic documentation and Coumadin resumed postoperatively. 3. GERD ? Continue home PPI. 4. Chronic BPH with obstructive symptoms ? Continue home Flomax. 5. Hypertension ? Blood pressure mildly soft postoperatively but back to baseline by that evening. Continue home amlodipine and lisinopril. DVT prophylaxis: Per primary team Total clinical time spent by myself addressing the patient's medical issues, reviewing all the data, and collaborating with patient's care team: 25 minutes. Charges/Coding Visit Charges Inpatient E&M: 83723 [facility] Hosp L1
--- NOTE | 2024-04-22 11:27 | PN.ORTHO_ITS ---
Subjective Subjective Patient appears comfortable in bedside chair. Patient states that he has been up and working with physical therapy and feels much more comfortable with going home. Patient denies any shortness of breath, chest pain, calf pain, fever, chills, dizziness, nausea, vomiting. Patient denies any adverse events overnight. Patient states he has not yet had a bowel movement today. Patient states that his pain is well-controlled. Patient states that his plan is for discharge home today. Patient states that both him and his feel more comfortable with him going home. Objective Data Objective Data Vital Signs: Vital Signs Temp Pulse Resp BP Pulse Ox O2 Del Method O2 Flow Rate 98.6 F 98 16 148/79 H 97 Room Air 4 04/22/24 08:30 04/22/24 08:30 04/22/24 08:30 04/22/24 08:30 04/22/24 08:30 04/22/24 08:30 04/20/24 16:27 Oxygen Flow Rate (L/min) 4 Oxygen Delivery Method Room Air Weight: 111.5 kg Body Mass Index (BMI) 39.4 Intake & Output: Intake and Output for Last 24 Hours 04/20/24 04/21/24 04/22/24 23:59 23:59 23:59 Intake Total 2737 / 2737 375 / 375 Balance 2737 / 2737 375 / 375 Lab / Micro Data 04/22/24 05:32 04/21/24 05:17 Labs: Laboratory Results - last 24 hr 04/22/24 05:32: WBC 18.4 H, RBC 3.68 L, Hgb 12.0 L, Hct 36.7 L, MCV 99.7 H, MCH 32.6 H, MCHC 32.7, RDW Std Deviation 56.9 H, RDW Coeff of [place]se 15.5 H, Plt Count 239, MPV 10.2 Micro: Microbiology 04/07/24 12:44 Nasal Secretion Nasal Screen MRSA/MSSA - Final Physical Exam Narrative 1. NITESH hose in place bilaterally. 2. SCDs in place bilaterally. 3. Dressing is clean dry and intact. 4. Prevena wound VAC in place. Minimal drainage in the tubing. 5. left hip is soft and supple. 6. Dorsiflexion and plantarflexion are performed actively without pain or restriction. 7. Sensation intact to light touch. 8. Neurovascularly intact overall. 9. Negative Homans bilaterally. Const alert, oriented x3 and no apparent distress Assessment & Plan Assessment/Plan (1) Status post left hip replacement: PLAN: 1. DVT prophylaxis: Patient will be on regular dose of preoperative warfarin for DVT prophylaxis. Patient will be wearing NITESH hose for 2 weeks postoperatively. Patient states that he does have concerns that his will not be able to be of much help with the NITESH hose. 2. Pain medications: Patient was instructed that he can take Tylenol 1000 mg every 8 hours [id number] taking no more than 3000 mg in 24 hours. Patient was then instructed to take her tramadol as needed for breakthrough pain. OARRS report was reviewed today. The risk of abuse potential for narcotic pain medication was discussed and reviewed. Patient was advised not to drive a motor vehicle or operate heavy equipment while taking narcotic pain medication. Patient voiced understanding. 3. Constipation: Patient was instructed to take senna as instructed until his first bowel movement to decrease risk of impaction following surgery. Patient was instructed if they have not yet had bowel movement in 3 days to call our office for reevaluation. 4. Physical therapy: Patient states that they have worked with physical therapy. Patient states that working with physical therapy went well. Patient states that after working with physical therapy he feels more comfortable and confident that his is able to care for him when he goes home. Appreciate recommendations for safe and appropriate discharge from physical therapy. 5. Labs: H&H: 12.0/36.7. Patient is asymptomatic at this time. 6. Incentive spirometer: Patient was encouraged to use incentive spirometer every hour that they are awake for the first week to exercise along decrease risk of postoperative infection. 7. Dressings: Patient currently has wound VAC in place. Prevena wound VAC instructions were given as to keep in place for 1 week. Patient was educated not to get the wound VAC wet and to sponge bathe for 1 week. Patient was educated that this is disposable and then may remove and discard after 1 week. Patient may remove wound VAC on 04/27/2024. Patient voiced understanding. 8. Postoperative instructions: Patient will follow postoperative instructions as well as follow-up per [facility] postoperative instructions. 9. Medicines involvement: Appreciate recommendations from medicine for safe and proper discharge. 10. Patient will be on doxycycline for 2 weeks postoperatively due to BMI. Patient was educated on the risk of sunburn while taking doxycycline. Patient was encouraged to take a probiotic while taking doxycycline. Patient voiced understanding. 11. Reactive leukocytosis: White blood cell count was 18.4. Vital signs are afebrile and patient is not experiencing symptoms at this time. Wound VAC and dressing looks clean dry and intact. Will send in discharge outpatient lab orders for patient to get a CBC to make sure white blood cell count is trending downward. Labs will be monitored and reviewed by myself. 12. GFR: Estimated GFR is 59 which is a drop from preoperative 63. We will avoid nonsteroidal anti-inflammatories at this time. Appreciate recommendations from medicine. 13. Patient feels that after physical therapy he feels more confident that his is able to help care for him at home. Plan is for patient to be discharged home this afternoon. Patient will follow-up per postoperative instructions. Patient will be given an outpatient lab order for a CBC to trend his white blood cell count is going downward. Will keep an eye out and review labs myself. Patient does have outpatient physical therapy scheduled for 04/23 at [facility].
--- NOTE | 2024-04-22 11:45 | PCM.DC ---
Discharge Instructions Diet Discharge Diet: No restrictions DC O2, CPAP, BIPAP needs Home O2 Discharge instructions: No Dressing / Incision Discharge Activity: May Not Shower (Do not get Prevena incisional wound VAC wet. Prefer if sponge bath was taken. No soaking, submerging for 6 weeks postoperatively over incision. No lotions, oils directly over incision for 6 weeks.) Weight Bearing Status: Weight bearing as tolerated (With walker.) Keep extremity elevated above heart level: Left Leg Dressing / Incision Call your doctor if your incision/area has: Continuous Slow Oozing, Sudden Increased Bleeding, Increased Pain/ Swelling, Increased Redness and Foul Smelling Discharge Call your doctor if you observe: Fever of 101 or Higher, Inability to urinate, Inability to have a bowel movement, Shortness of breath, Dizziness, Fainting spells, Chest pain, Increased palpitations (irregular heartbeat), Calf discomfort and Uncontrolled pain Remove Dressing in: 5 days (Can remove Prevena incisional wound VAC on 04/27/2024. Do not get Prevena incisional wound VAC wet. Can dispose of incisional wound VAC after removal.) Cleanse incision/area with: Keep Dressing Clean & Dry (Keep Prevena incisional wound VAC clean and dry. May use gentle soap and water over incision following removal of wound VAC as long as incision looks clean dry and intact.) Additional Dressing/Incision Instructions:: Follow [facility] Post-op Instructions. Remove Prevena incisional wound VAC on April 27, 2024. Will need to sponge bathe until the wound VAC has been removed. Once removal of the wound VAC as long as there is no drainage okay to shower only. Do not use any ointments, Neosporin, salves, alcohol pads over the incision for 6 weeks postoperatively. Do not submerge underwater for 6 weeks postoperatively. Continue with NITESH hose/elastic stockings for 2 weeks postoperatively. May remove at nighttime but needs to be placed back on the leg during the day. Do NOT use alcohol with narcotic pain medication. Do NOT make important decisions while taking narcotic medication. If you have problems with taking your medication (rash, itching, nausea, etc.) call the office at once. Follow Up Care Test Results: Test results from this visit will be discussed in further detail at your follow-up appointment, if applicable. Discharge Plan Admission Admit Date/Time: 04/20/24 07:26 Attending Provider: Robe Murillo Primary Care Provider: Selene Lovett Consulting Providers: Loreta Herrera; Palomo Peck Discharge Orders/Prescriptions Prescriptions: New acetaminophen 500 mg Tablet 1,000 mg PO TID Qty: 0 0RF doxycycline monohydrate 100 mg Capsule 100 mg PO BID 12 Days Qty: 24 0RF sennosides-docusate sodium 8.6-50 mg Tablet 2 tab PO BID 3 Days Qty: 12 0RF Rx Instructions: Take until first bowel movement and then as needed. tramadol 50 mg Tablet 50 - 100 mg PO Q6H PRN PRN (Reason: as needed for pain) 7 Days Qty: 42 0RF Continued gabapentin 100 mg capsule 300 mg PO Q12H Patient Comments: [NO ORIGINAL SIG] warfarin 6 mg tablet 6 mg PO DAILY amlodipine-benazepril 5-20 mg capsule 1 cap PO DAILY montelukast 10 mg tablet 10 mg PO QHS fluticasone propionate 50 mcg/actuation spray,suspension 2 spray INTRANASAL Q12H omeprazole 10 mg capsule,delayed release(DR/EC) 10 mg PO DAILY albuterol 90 mcg/actuation aerosol 90 mcg inhalation 4X/DAY PRN (Reason: wheezing) tamsulosin [Flomax] 0.4 mg capsule 0.4 mg PO DAILY calcium phos,dibas-vitamin D3 [Vitamin D (with calcium)] PO Patient Comments: unsure of dose or specifics Other Ambulatory Orders: 12 Lead EKG (Routine) Timeframe: [id number] Location: None Selected Ordered By: Dr. Robe Murillo Referrals / Follow Up: physical,therapy [Other] - 04/23/24 2:00 pm Selene Lovett NP-C [Primary Care Provider] - Sal Castillo PA-C [Med Staff - [facility] Practice Prof] - 05/04/24 2:15 pm Disposition Disposition (needs filled in before D/C Order can be placed): Home, Self Care
[2024-04-22 13:43] VITALS: BP 144/70; PULSE 88; RESP 18; TEMP 37.2; O2SAT 96
--- NOTE | 2024-04-22 14:07 | CASEMGMT ---
KATHERINE CM into pt room, pt sitting in chair in no distress. Discussed dc planning, pt states he feels comfortable to go home and proceed with his plan for outpt therapy this week. Pt denies any further needs at this time and states he is waiting for his to come pick him up.
== END 2024-04-22 13:46 | disposition home or self-care (01) ==
LOC: SDC 15:52 → AC 15:52 → SDC 15:54 → MS3 15:54
PROVIDERS: Anesthesiology; Admitting Provider Specialist; PCP Nurse Practitioner Family; Referring Provider Specialist; Visit Provider Specialist
PROC: (CPT 27284; principal; 2024-04-20 12:05)
DX: M16.12 Unilateral primary osteoarthritis, left hip (principal); J44.9 Chronic obstructive pulmonary disease, unspecified; E66.01 Morbid (severe) obesity due to excess calories; Z68.41 Body mass index [BMI] 40.0-44.9, adult; K21.9 Gastro-esophageal reflux disease without esophagitis; I10 Essential (primary) hypertension; Z87.891 Personal history of nicotine dependence; N40.1 Benign prostatic hyperplasia with lower urinary tract symptoms; N13.8 Other obstructive and reflux uropathy; Z79.899 Other long term (current) drug therapy; Z86.718 Personal history of other venous thrombosis and embolism; Z86.711 Personal history of pulmonary embolism
CPT/HCPCS: 27130; 01214; 36415; 36416; 73501; 73502; 76000; 80048; 82040; 82962; 83735; 85025; 85027; 85610; 87081; 88305; 88311; 93005; 94668; 96365; 96366; 96367; 97116; 97162; 97166; 97530; 97535; 99221; 99252; C1776; G0378; G0463; J3475

== ENCOUNTER 2024-04-23 11:45 | Observation (INO) | payer MEDICARE, OTHER, SELFPAY ==
[2024-04-23 11:53] VITALS: BP 131/67; PULSE 93; RESP 20; TEMP 36.5; O2SAT 98; BMI 41.0
--- NOTE | 2024-04-23 12:05 | RAD_ITS ---
PROCEDURE: HIP, UNI W/ PELVIS 2-3 VIEWS REASON FOR EXAM: Pain following a fall. Recent left hip replacement. TECHNIQUE: Three views of the left hip COMPARISON: Comparison is made with prior study dated April 20, 2024. FINDINGS: No fracture. No suspicious bone lesion. Normal alignment. Postoperative soft tissue changes. Status post bilateral hip replacement. RAD/HIP, UNI W/ Pelvis 2-3 Views IMPRESSION: Status post bilateral total hip replacement. No acute fracture or subluxation is seen. Reading Location: [id number]
--- NOTE | 2024-04-23 12:37 | EX.ED.DYSGE1 ---
HPI History of Present Illness Chief Complaint: Other, Pain/Inj Informant: patient Narrative Narrative: Patient is an 84-year-old male presenting via EMS for debility. Patient had elective left total hip arthroplasty on 04/20/[address] Murillo. Has a history of COPD, hypertension, DVT and PE. Is on Coumadin. States he was discharged from the hospital yesterday. When getting out of the car he fell and landed in a puff of snow. Denied any injury. Had a lay there for about an hour before EMS came to get him up. Had declined transfer back to the ER at that time. Notes that he lives in a split-level with his he is not really able to help him much at home. He has a lot of debility and pain when he tries to do anything with his left leg. He states he does not think he is a bit home and needs to come back into the hospital. [facility] Medical History GERD (gastroesophageal reflux disease) Wears dentures Walker as ambulation aid Ambulates with cane Prostate disease High cholesterol Pulmonary embolism DVT (deep venous thrombosis) Easy bruising Gastric reflux Former smoker COPD (chronic obstructive pulmonary disease) History of edema Hypertension Home Medications ?Medication ?Instructions ?Recorded ?Last Taken ?Type amlodipine 5 mg-benazepril 20 mg 1 cap PO DAILY 03/27/24 04/19/24 History capsule fluticasone propionate 50 2 spray intranasal Q12H 03/27/24 04/21/24 History mcg/actuation nasal spray,suspension gabapentin 100 mg capsule 300 mg PO Q12H 03/27/24 04/19/24 History montelukast 10 mg tablet 10 mg PO QHS 03/27/24 04/21/24 History omeprazole 10 mg capsule,delayed 10 mg PO DAILY 03/27/24 04/21/24 History release tamsulosin 0.4 mg capsule (Flomax) 0.4 mg PO DAILY 03/27/24 04/21/24 History warfarin 6 mg tablet 6 mg PO DAILY 03/27/24 04/21/24 History calcium phos,dibas-vitamin D3 PO 04/20/24 04/21/24 History acetaminophen 500 mg tablet 1,000 mg (2 x 500 mg) PO TID #0 04/22/24 04/22/24 Rx tabs sennosides 8.6 mg-docusate sodium 2 tab PO BID 3 days #12 tabs 04/22/24 04/21/24 Rx 50 mg tablet albuterol sulfate 90 mcg/actuation 1 inh inhalation 4X/DAY PRN 04/23/24 Unknown History aerosol inhaler shortness of breath or wheezing Allergy/AdvReac Type Severity Reaction Status Date / Time Penicillins (PCN) Allergy Intermediate Rash Verified 04/23/24 11:56 Sulfa (Sulfonamide Allergy Mild KIDNEY Verified 04/23/24 11:56 Antibiotics) CRYSTALS aspirin (ASA) Allergy Shortness Verified 04/23/24 11:56 of breath Surgical History History of cataract extraction History of hip replacement Social History Smoking Status: Former smoker ROS ROS ED Constitutional Constitutional ED: Denies chills or fever(s) Cardiovascular Cardiovascular: Denies chest pain Respiratory/Chest Respiratory/Chest: Denies cough or dyspnea Gastrointestinal Gastrointestinal: Denies abdominal pain, nausea or vomiting Musculoskeletal Musculoskeletal: Reports other Details: post op left hip pain Neurologic Neurologic: Reports weakness; Denies paresthesias Hematologic/Lymphatic Hematologic/Lymphatic: Reports other Details: ON lovenox, bridging to Coumadin EXAM Physical Exam Const Vital Signs: 04/23/24 11:53 04/23/24 13:45 04/23/24 13:45 Temperature 97.7 F L 97.7 F L Temperature Source Oral Pulse Rate 93 83 Respiratory Rate 20 H 15 Blood Pressure 131/67 H 150/69 H 150/79 H Blood Pressure Mean 88 96 102 Pulse Ox 98 95 Oxygen Delivery Method Room Air Positive well nourished and well developed General Appearance ED: well developed and NAD HEENT Reports moist mucous membranes Negative for trauma Eyes PERRL Neck supple Chest Wall inspection of chest normal and palpation of chest normal Resp normal respiratory effort and clear to auscultation bilaterally Cardio regular rate and regular rhythm GI normal to inspection, nondistended, normoactive bowel sounds and non-tender Extremity Extremity Narrative: Decreased range of motion of the left lower extremity at the hip consistent with recent hip surgery. Neuro oriented x3 and no sensory deficits noted Sensorium / Orientation: alert Motor Exam: strength 5/5 throughout Psych mental status grossly normal Skin Skin Narrative: Wound VAC present on the left lateral hip. It is not currently connected to the motor but I do not appreciate any drainage around it. MDM MDM MDM Narrative Medical decision making narrative: Patient presented to the emergency room for debility associated with recent left total hip arthroplasty. Patient peers nontoxic no acute distress. Did have a fall yesterday. He did not hit his head. Suspicion for intracranial hemorrhage. X-ray obtained to rule out any associated traumatic injury. X-ray reviewed by myself as well as radiology does not show any acute fractures consistent with recent left hip arthroplasty. Patient is not any significant pain while at rest. Is neurovascularly intact. Will be admitted for evaluation for rehab. I did discuss with the patient surgeon, Dr. Murillo to inform him that patient will be coming back to the hospital. No further recommendations at this time. Case discussed with hospitalist for admission. Lab Data Attestation: I reviewed the patient's lab results. Labs: Laboratory Results - last 24 hr 04/23/24 12:30 WBC 15.6 H RBC 3.89 L Hgb 12.8 L Hct 37.9 L MCV 97.4 H MCH 32.9 H MCHC 33.8 RDW Std Deviation 53.1 H RDW Coeff of Therese 15.0 H Plt Count 255 MPV 10.1 Immature Gran % (Auto) 0.600 Neut % (Auto) 83.0 H Lymph % (Auto) 7.7 L [place] % (Auto) 7.9 Eos % (Auto) 0.5 Baso % (Auto) 0.3 Absolute Neuts (auto) 13.0 H Absolute Lymphs (auto) 1.21 Nucleated RBC % 0 PT 19.3 H INR 1.6 Sodium 140 Potassium 4.3 Chloride 107 Carbon Dioxide 27.0 Anion Gap 6 BUN 23 H Creatinine 1.25 Estim Creat Clear Calc 54.39 Est GFR (MDRD) Af Amer 71 Est GFR (MDRD) Non-Af 59 L BUN/Creatinine Ratio 18.4 Glucose 130 H Calcium 9.8 Radiography Diagnostic Testing: Clinical Impression(s) from Imaging Studies Hip/Pelvis X-Ray 04/23/24 12:05 IMPRESSION: Status post bilateral total hip replacement. No acute fracture or subluxation is seen. Reading Location: [facility] Management Discussion w/another healthcare provider: Hospitalist and Partition Making Machine Operator Discharge Plan Dx/Rx/DC Orders Clinical Impression: Status post left hip replacement, Increased white blood cell count Disposition Disposition: Acute Care Hospital [facility] Discharge Date/Time: 04/23/24 15:58
[2024-04-23 12:39] LABS: Absolute Lymphocyte Count 1.21 X10^3/uL (0.83-4.51); Basophil# 0.05 X10^3/uL; Basophil% 0.3 % (0-1); Eosinophil# 0.08 X10^3/uL; Eosinophils% 0.5 % (0-5); Hematocrit 37.9 % (40-54); Hemoglobin 12.8 g/dL (13.0-16.5); Lymphocyte # 1.21 X10^3/ul (0.83-4.51); Lymphocyte % 7.7 % (19-41); Mean Corp Hgb Conc 33.8 g/dL (32-36); Mean Corpuscular Hgb 32.9 pg (27.0-32.0); Mean Corpuscular Volume 97.4 fL (80-94); Mean Platelet Vol. 10.1 fl (6.2-12.0); Monocyte# 1.23 X10^3/uL; Monocyte% 7.9 % (0-10); NRBC Flagged by Analyzer 0 % (0-5); Neutrophil # 12.97 X10^3/uL (2.7-7.7); Platelet Count 255 K/mm3 (150-450); RBC Distribution Width SD 53.1 fl (35.1-43.9); Red Blood Count 3.89 M/mm3 (4.6-6.2); White Blood Count 15.6 K/mm3 (4.4-11.0)
[2024-04-23 13:02] LABS: Anion Gap 6 (5-15); BUN 23 mg/dL (7-18); BUN/Creat Ratio 18.4 RATIO (10-20); Calcium,Total 9.8 mg/dL (8.5-10.1); Chloride 107 mmol/L (98-107); Creatinine, Serum 1.25 mg/dL (0.70-1.30); EST Glomerular Filtration Rate 59 mL/min (>60); Est Glom Filt Rate - Afr Amer 71 mL/min (>60); Estimated Creatinine Clearance 54.39 ml/min; Glucose 130 mg/dL (74-106); International Normalized Ratio 1.6; Potassium 4.3 mmol/L (3.5-5.1); Prothrombin Time (Protime)PT. 19.3 SECONDS (11.7-14.9); Sodium Level 140 mmol/L (136-145)
[2024-04-23 13:45] VITALS: BP 150/69; BP 150/79; PULSE 83; RESP 15; TEMP 36.5; O2SAT 95
--- NOTE | 2024-04-23 14:26 | PCM.HP.STD ---
HPI - General General Date of Admission: 04/23/24 Date of Service: 04/23/24 Chief Complaint: Left hip pain and debility HPI Narrative FREDO LCARK, is a 84-year-old male with a history of hypertension, GERD, BPH, VTE who presented [facility] 04/23/2024 for debility and fall. Patient had elective total hip arthroplasty on 04/20/[address] Murillo. Was discharged from the hospital yesterday and was getting out of the car and landed on a puff of snow and denied any injury however he had to lay there for about half an hour before EMS came to get him up. At that time he declined transfer back to the ED but he had difficulty getting around at home and was having a lot of pain so he presented back to the hospital. X-ray negative for acute process, lab workup not overly remarkable. Patient's orthopedic surgeon contacted in the ED to make him aware that patient came back and will likely need placed. Hospitalist contacted for admission. Patient evaluated with at bedside, they report they think he was sent home too soon and patient admits that he thinks some of it is that he was confident his would be able to help him more but she is unable to. Patient agreeable to admission. said he had a possible fever last night however patient was unsure if he did and she reports that he was hot there is no measured temperature at the time, has not had anything like that today. Aside from the left postop pain patient denied any acute complaints [facility] Medical History (Updated 04/23/24 @ 14:28 by Joan Garza) Ambulates with cane COPD (chronic obstructive pulmonary disease) DVT (deep venous thrombosis) Easy bruising Former smoker Gastric reflux GERD (gastroesophageal reflux disease) High cholesterol History of edema Hypertension Prostate disease Pulmonary embolism Walker as ambulation aid Wears dentures Home Medications ?Medication ?Instructions ?Recorded ?Last Taken ?Type amlodipine 5 mg-benazepril 20 mg 1 cap PO DAILY 03/27/24 04/19/24 History capsule fluticasone propionate 50 2 spray intranasal Q12H 03/27/24 04/21/24 History mcg/actuation nasal spray,suspension gabapentin 100 mg capsule 300 mg PO Q12H 03/27/24 04/19/24 History montelukast 10 mg tablet 10 mg PO QHS 03/27/24 04/21/24 History omeprazole 10 mg capsule,delayed 10 mg PO DAILY 03/27/24 04/21/24 History release tamsulosin 0.4 mg capsule (Flomax) 0.4 mg PO DAILY 03/27/24 04/21/24 History warfarin 6 mg tablet 6 mg PO DAILY 03/27/24 04/21/24 History calcium phos,dibas-vitamin D3 PO 04/20/24 04/21/24 History acetaminophen 500 mg tablet 1,000 mg (2 x 500 mg) PO TID #0 04/22/24 04/22/24 Rx tabs sennosides 8.6 mg-docusate sodium 2 tab PO BID 3 days #12 tabs 04/22/24 04/21/24 Rx 50 mg tablet albuterol sulfate 90 mcg/actuation 1 inh inhalation 4X/DAY PRN 04/23/24 Unknown History aerosol inhaler shortness of breath or wheezing Allergy/AdvReac Type Severity Reaction Status Date / Time Penicillins (PCN) Allergy Intermediate Rash Verified 04/23/24 11:56 Sulfa (Sulfonamide Allergy Mild KIDNEY Verified 04/23/24 11:56 Antibiotics) CRYSTALS aspirin (ASA) Allergy Shortness Verified 04/23/24 11:56 of breath Surgical History History of cataract extraction History of hip replacement Social History Smoking Status: Former smoker ROS ROS Narrative General: Had an episode where he seemed hot last night, temperature was not measured HENT: Denies headache, denies stuffy nose, denies sore throat EYES: Denies changes in vision Resp: Denies cough, denies shortness of breath Cardiac: Denies chest pain GI: Denies abdominal pain, denies changes in bowel, denies nausea/vomiting : Denies changes in urination Extremity: Denies swelling MSK: Some general weakness and difficulty getting around post surgery Neuro: Denies any numbness/tingling Heme: Denies any bleeding or bruising Skin: Denies rashes, wound VAC in place and used it all night Psychiatric: Patient feels he was discharged too early Vital Signs Vital Signs Vital Signs: 04/23/24 11:53 04/23/24 13:45 04/23/24 13:45 Temperature 97.7 F L 97.7 F L Temperature Source Oral Pulse Rate 93 83 Respiratory Rate 20 H 15 Blood Pressure 131/67 H 150/69 H 150/79 H Blood Pressure Mean 88 96 102 Pulse Ox 98 95 Oxygen Delivery Method Room Air Weight Weight: 115.3 kg Body Mass Index (BMI) 41.0 Physical Exam Narrative General: Alert, no apparent distress HEENT: Atraumatic, normocephalic Eyes: Anicteric, normal conjunctiva, extraocular movements grossly intact Neck: Supple Respiratory: Clear to auscultation bilaterally, normal respiratory effort Cardiovascular: Regular rate GI: Soft, nontender, nondistended Extremities: No significant pitting edema Musculoskeletal: Moving all extremities Neuro: No overt focal neurological deficits Skin: No rashes appreciated, wound VAC in place Psych: Cooperative Results Lab / Micro Data 04/23/24 12:30 04/23/24 12:30 Labs: Laboratory Results - last 24 hr 04/23/24 12:30: WBC 15.6 H, RBC 3.89 L, Hgb 12.8 L, Hct 37.9 L, MCV 97.4 H, MCH 32.9 H, MCHC 33.8, RDW Std Deviation 53.1 H, RDW Coeff of Therese 15.0 H, Plt Count 255, MPV 10.1, Immature Gran % (Auto) 0.600, Neut % (Auto) 83.0 H, Lymph % (Auto) 7.7 L, [place] % (Auto) 7.9, Eos % (Auto) 0.5, Baso % (Auto) 0.3, Absolute Neuts (auto) 13.0 H, Absolute Lymphs (auto) 1.21, Nucleated RBC % 0, PT 19.3 H, INR 1.6, Sodium 140, Potassium 4.3, Chloride 107, Carbon Dioxide 27.0, Anion Gap 6, BUN 23 H, Creatinine 1.25, Estim Creat Clear Calc 54.39, Est GFR (MDRD) Af Amer 71, Est GFR (MDRD) Non-Af 59 L, BUN/Creatinine Ratio 18.4, Glucose 130 H, Calcium 9.8 Imaging Radiology Impression Hip/Pelvis X-Ray 04/23/24 12:05 IMPRESSION: Status post bilateral total hip replacement. No acute fracture or subluxation is seen. Reading Location: [id number] Assessment & Plan Assessment/Plan (1) Status post left hip replacement: PLAN: Plan # Fall in setting of recent minimally invasive direct anterior hip replacement with Dr. Murillo 04/20/2024 -Hip x-ray no acute process -PT/OT -Ortho was informed in the ED regarding patient's admission -Pain control with oral medications -Continue doxycycline -Wound care nurse consult for wound VAC -Case management consult -Patient feels he was discharged too early last time and wanted it to be communicated that he thought so # History of VTE and factor V Leiden deficiency -Patient on Coumadin, was bridged with Lovenox prior to surgery but reports was told just to go back on his Coumadin and no further bridging postoperatively -INR 1.6, continue Coumadin -Given patient's history and subtherapeutic INR we will have patient on Lovenox 40 mg twice daily for DVT prophylaxis -Monitor INR #Episode of feeling warm -Patient's temperature was not taken at the time and there was nothing before nothing after -White blood cell count slightly elevated but down from yesterday -Will obtain blood and urine cultures but would hold off on empiric antibiotics unless patient febrile or obvious signs of infection arise #GERD -Continue PPI #Chronic BPH with obstruction -Continue home medications #Hypertension -Continue home antihypertensives #DVT ppx: Lovenox Loreta Herrera MD Time spent in the patient's overall evaluation, decision-making process, review of diagnostic data, adjustment of management, discussion with other providers, nursing and ancillary staff involved in patient's care documentation, 57 Minutes Charges/Coding Visit Charges Inpatient E&M: 16652 Init Hosp L2
[2024-04-23 15:00] VITALS: BP 128/95
[2024-04-23 16:22] VITALS: BMI 41.0
[2024-04-23 16:35] VITALS: BP 136/55; PULSE 89; RESP 16; TEMP 37; O2SAT 97
[2024-04-23 16:56] LABS: Mucous, Urine 0 SEEN /hpf (<or=2+)
[2024-04-23 17:08] LABS: Color, Urine Yellow (Yellow); Glucose, Dipstick Normal (Normal); Ketone-Dipstick 50 mg/dl (Negative); Leukocyte Esterase-Dipstick Negative /ul (Negative); Nitrite-Dipstick Negative (Negative); Occult Blood-Urine 25 /ul (Negative); Protein-Dipstick 30 mg/dl (Negative); Specific Gravity, Urine 1.015 (1.002-1.030); Urine Bilirubin Dipstick Negative (Negative); Urine Clarity Clear (Clear); Urine Urobilinogen Normal (Normal); Urine pH 6.5 (5.0 - 8.0)
[2024-04-23 17:18] LABS: Bacteria RARE /hpf (None Seen); Red Blood Cells-Urine 0-5 SEEN /hpf (0-5); White Blood Cells 0-5 SEEN /hpf (0-5)
[2024-04-23 17:19] LABS: Squamous Epithelial Cells - UA 0-5 SEEN /hpf (0-5)
[2024-04-23 21:33] VITALS: BP 163/64; PULSE 91; RESP 16; TEMP 37.6; O2SAT 95
[2024-04-23] MEDS: Senna/Docusate Sodium 1 Tablet 2 TABLET PO (21:46)
[2024-04-23] MEDS: Gabapentin 300 MG Capsule PO (21:46)
[2024-04-23] MEDS: Fluticasone 0.05% 1 SPRAY NASAL.SRY 2 SPRAY NASAL (21:46)
[2024-04-23] MEDS: Enoxaparin 40 MG/0.4 ML Syringe SC (21:46)
[2024-04-23] MEDS: Montelukast 10 MG Tablet PO (21:47)
[2024-04-23] MEDS: Acetaminophen 500 MG Tablet 1000 MG PO (21:47)
[2024-04-24 05:47] VITALS: BP 140/67; PULSE 85; RESP 18; TEMP 36.9; O2SAT 96
[2024-04-24] MEDS: Acetaminophen 500 MG Tablet 1000 MG PO ×2 (05:53→13:52)
[2024-04-24 06:39] LABS: Absolute Lymphocyte Count 2.75 X10^3/uL (0.83-4.51); Absolute Neutrophil Count 9.3 X10^3/uL (2.0-7.7); Basophil# 0.06 X10^3/uL; Basophil% 0.4 % (0-1); Eosinophil# 0.45 X10^3/uL; Eosinophils% 3.3 % (0-5); Hematocrit 40.9 % (40-54); Hemoglobin 13.2 g/dL (13.0-16.5); Lymphocyte # 2.75 X10^3/ul (0.83-4.51); Lymphocyte % 20.1 % (19-41); Mean Corp Hgb Conc 32.3 g/dL (32-36); Mean Corpuscular Hgb 31.6 pg (27.0-32.0); Mean Corpuscular Volume 97.8 fL (80-94); Mean Platelet Vol. 10.5 fl (6.2-12.0); Monocyte# 1.09 X10^3/uL; NRBC Flagged by Analyzer 0 % (0-5); Neutrophil # 9.26 X10^3/uL (2.7-7.7); Neutrophil % 67.7 % (47-70); Platelet Count 303 K/mm3 (150-450); RBC Distribution Width CV 14.9 % (11.6-14.6); RBC Distribution Width SD 54.2 fl (35.1-43.9); Red Blood Count 4.18 M/mm3 (4.6-6.2); White Blood Count 13.7 K/mm3 (4.4-11.0)
[2024-04-24 06:47] LABS: International Normalized Ratio 1.4; Prothrombin Time (Protime)PT. 17.6 SECONDS (11.7-14.9)
[2024-04-24 07:22] LABS: Anion Gap 8 (5-15); BUN 24 mg/dL (7-18); BUN/Creat Ratio 19.4 RATIO (10-20); Calcium,Total 9.7 mg/dL (8.5-10.1); Chloride 106 mmol/L (98-107); Creatinine, Serum 1.24 mg/dL (0.70-1.30); EST Glomerular Filtration Rate 59 mL/min (>60); Est Glom Filt Rate - Afr Amer 72 mL/min (>60); Estimated Creatinine Clearance 54.83 ml/min; Glucose 118 mg/dL (74-106); Potassium 3.4 mmol/L (3.5-5.1); Sodium Level 140 mmol/L (136-145)
[2024-04-24 08:24] VITALS: BP 111/60; PULSE 84; RESP 18; TEMP 36.6; O2SAT 96
[2024-04-24] MEDS: Fluticasone 0.05% 1 SPRAY NASAL.SRY 2 SPRAY NASAL (08:33)
[2024-04-24] MEDS: Senna/Docusate Sodium 1 Tablet 2 TABLET PO (08:34)
[2024-04-24] MEDS: Pantoprazole Sodium 20 MG Tablet PO (08:34)
[2024-04-24] MEDS: Tamsulosin HCl 0.4 MG Capsule PO (08:34)
[2024-04-24] MEDS: Lisinopril 20 MG Tablet PO (08:35)
[2024-04-24] MEDS: amLODIPine 5 MG Tablet PO (08:35)
[2024-04-24] MEDS: Gabapentin 300 MG Capsule PO (08:41)
[2024-04-24] MEDS: Enoxaparin 120 MG/0.8 ML Syringe 110 MG SC (08:42)
--- NOTE | 2024-04-24 10:45 | CASEMGMT ---
Addendum entered by Christi Wan 04/24/24 14:45: Received tc from Hafsa at [facility], they are able to accept pt for SOC tomorrow morning. KATHERINE MENDEZ into pt room, pt and is aware. They deny further needs at this time. Addendum entered by Christi Wan 04/24/24 14:04: 1329- KATHERINE MENDEZ into pt room, pt at bedside. Pt and discussed that they would like to have HHC. Pt states that she did bring the same vehicle that pt fell out of but that the step is clear without snow and ice and she will park where there is no snow or ice on the cement and the walkway into the house. She states that she removed the snow and salted the steps entering the home. Pt does not believe this and feels this is going to be a problem. Discussed transport home and pt denies then stating that it will not be a problem. Pt states he feels he is not ready to go home and that it is asking too much of his to assist him. Pt states they have picked 1.[facility] 2. [facility]. TC to Hafsa at [facility], referral made. Original Note: Spoke with PT and SW, KATHERINE MENDEZ into pt room, pt sitting up in chair in no distress. Discussed therapy options with pt. Pt states his is coming in and he would like to talk to her before making a decision. Discussed outpt therapy at [facility] and [facility]. He is aware that [facility] can provide transportation if he is able to get in and out of the home and the van on his own. Pt states that having his snow removed is not an option. Discussed having [facility] where the therapist comes into the home to provide therapy. Patient was provided a list of [facility] providers including quality and resource use data and consistent with the patient?s preferred geographic region, medical needs, and insurance network were provided from the [employer]. Pt does not seem interested in this option either. Pt states he wishes he would've never had surgery. Pt denies further needs at this time. KATHERINE MENDEZ to check back once is present per pt request.
--- NOTE | 2024-04-24 12:03 | CASEMGMT ---
Social Work- SW met with pt to discuss pt concerns regarding return home. SW introduced self and role; pt agreeable to meeting. Pt did very well with therapy and was SBA. SW provided education on observation status and that a SNF would be private pay. Pt reports that he is unable to afford the cost of SNF. Pt reports the barrier to return home is the snow at his home. SW encouraged pt to seek snow removal; pt refused. SW asked if pt has any other family or friends that he could stay with until snow melts; pt declines. SW offered that pt could private pay for a cot transport into home; pt declined. Pt reports that he was going to call his and discuss return home. Pt called SW and expressed concern about pt returning home due to her being unable to help pt get through the snow and into the home. Pt reports that pt needs a urinal as he has incontinence. SW discussed home health care, providing education on SNF private pay as well as other care options such as [facility]. Pt also declined having money for snow removal and reports that she does not know what the best plan will be to get pt in the home. Pt is receptive to [facility]. RNCM advised. SW offered support and encouragement. DAVIS Vazquez
[2024-04-24 14:02] VITALS: BP 122/64; PULSE 96; RESP 18; TEMP 36.6; O2SAT 97
--- NOTE | 2024-04-24 14:24 | PCM.DC ---
Discharge Instructions Diet Discharge Diet: No restrictions DC O2, CPAP, BIPAP needs Home O2 Discharge instructions: No Dressing / Incision Discharge Activity: No Restrictions Follow Up Care Test Results: Test results from this visit will be discussed in further detail at your follow-up appointment, if applicable. Discharge Plan Admission Admit Date/Time: 04/23/24 14:26 Primary Reason for Your Visit: Weakness Attending Provider: Palomo Peck Primary Care Provider: Selene Lovett Consulting Providers: Loreta Herrera Discharge Orders/Prescriptions Prescriptions: Continued gabapentin 100 mg capsule 300 mg PO Q12H Patient Comments: [NO ORIGINAL SIG] warfarin 6 mg tablet 6 mg PO DAILY amlodipine-benazepril 5-20 mg capsule 1 cap PO DAILY montelukast 10 mg tablet 10 mg PO QHS fluticasone propionate 50 mcg/actuation spray,suspension 2 spray INTRANASAL Q12H omeprazole 10 mg capsule,delayed release(DR/EC) 10 mg PO DAILY tamsulosin [Flomax] 0.4 mg capsule 0.4 mg PO DAILY calcium phos,dibas-vitamin D3 [Vitamin D (with calcium)] PO Patient Comments: unsure of dose or specifics acetaminophen 500 mg Tablet 1,000 mg PO TID Qty: 0 0RF sennosides-docusate sodium 8.6-50 mg Tablet 2 tab PO BID 3 Days Qty: 12 0RF Rx Instructions: Take until first bowel movement and then as needed. albuterol sulfate 90 mcg/actuation HFA aerosol inhaler 1 inh inhalation 4X/DAY PRN (Reason: shortness of breath or wheezing) Referrals / Follow Up: Selene Lovett, STATISTICAL CLERK-C [Primary Care Provider] - Disposition Disposition (needs filled in before D/C Order can be placed): Home Health Service
--- NOTE | 2024-04-24 14:24 | PCM.DC.SUM ---
Providers Date of Admission: 04/23/24 Date of Discharge: 04/24/24 Primary Care Physician: ONEAL Kessler Consultations 04/23/24 16:16 Consult: Onc/Wound/instructor of nursing Routine Comment: Reason for Consult:: wound vac Reason For Visit: LEFT HIP PAIN AND DEBILITY Diagnosis Discharge Diagnosis (1) Status post left hip replacement: Status: Acute Code(s): Z96.642 - Presence of left artificial hip joint Medications at Discharge Home Medications amlodipine 5 mg-benazepril 20 mg capsule 1 cap PO DAILY 03/27/24 fluticasone propionate 50 mcg/actuation nasal spray,suspension 2 spray intranasal Q12H 03/27/24 gabapentin 100 mg capsule 300 mg PO Q12H 03/27/24 montelukast 10 mg tablet 10 mg PO QHS 03/27/24 omeprazole 10 mg capsule,delayed release 10 mg PO DAILY 03/27/24 tamsulosin 0.4 mg capsule (Flomax) 0.4 mg PO DAILY 03/27/24 warfarin 6 mg tablet 6 mg PO DAILY 03/27/24 calcium phos,dibas-vitamin D3 PO 04/20/24 acetaminophen 500 mg tablet 1,000 mg (2 x 500 mg) PO TID #0 tabs 04/22/24 sennosides 8.6 mg-docusate sodium 50 mg tablet 2 tab PO BID 3 days #12 tabs 04/22/24 albuterol sulfate 90 mcg/actuation aerosol inhaler 1 inh inhalation 4X/DAY PRN shortness of breath or wheezing 04/23/24 Hospital Course Operations None Procedures - (hip/pelvis x-ray) Summary of Care Provided Minutes Spent on Discharge: 35 Hospital Course: Patient is an 84-year-old male who presented to [facility] ED on 04/23/2024 with worsening weakness. Short hospital course as noted below. Patient discharged home with home health care in stable condition on 04/24. 1. Acute on chronic debility after recent left hip replacement ? PT/OT/case management followed. Patient recently hospitalized here for planned left hip replacement that was done on 04/[address] Murillo. Had good therapy scores and was discharged home on 04/22. However, he had worsening weakness at home and was concerned that his could not take care of him, so he came back in for further evaluation. Repeat hip x-ray showed no concerning findings. Worked with therapy on 04/24 and again had good therapy scores and did not qualify for SNF. Discharged home with home health care on 04/24. Continue pain control with scheduled Tylenol and oxycodone as needed and postoperative doxycycline per orthopedic recommendations. 2. History of VTE and factor V Leiden deficiency ? Coumadin was stopped 5 days prior to surgery and patient is on Lovenox bridge back to therapeutic INR 2-3. INR 1.4 here, continued home Coumadin and Lovenox bridge and will continue these on discharge. 3. GERD ? Continue home PPI. 4. Chronic BPH with obstructive symptoms ? Continue home Flomax. 5. Hypertension ? Continue home amlodipine and lisinopril. Total clinical time spent by myself addressing the patient's medical issues, reviewing all the data, and collaborating with patient's care team: 35 minutes. Physical Exam Const alert, oriented x3 and no apparent distress Constitutional Narrative: Elderly male, class II obesity, mildly fatigued appearing but otherwise sitting up comfortably in bedside chair, conversing normally, in no acute distress. General Appearance: cooperative and comfortable HEENT normocephalic, head/scalp atraumatic, hearing grossly normal bilaterally, nasal mucous membranes and turbinates normal and moist oral mucous membranes Eyes PERRL, EOMs intact bilaterally and conjunctivae normal Neck full ROM Chest inspection of chest normal Resp normal respiratory effort, normal air movement, no use of accessory muscles and clear to auscultation bilaterally Cardio regular rate, regular rhythm, no murmurs and peripheral pulses 2+ throughout GI normal to inspection, nondistended, normoactive bowel sounds, soft to palpation, non-tender and non-distended Back/Spine normal ROM Extremity Extremity Narrative: Left hip with wound VAC in place, stable. Skin no rashes or lesions noted Neuro Speech: speech normal Psych mental status grossly normal Weight / BMI Weight Weight: 115.3 kg Body Mass Index (BMI) 41.0 ABG / Lab / Microbiology Data 04/24/24 05:15 04/24/24 05:15 Laboratory: Laboratory Results - last 24 hr 04/23/24 16:45: Urine Color Yellow, Urine Clarity Clear, Urine pH 6.5, Ur Specific [place] 1.015, Urine Protein 30 H, Urine Glucose (UA) Normal, Urine Ketones 50 H, Urine Occult Blood 25 H, Urine Nitrite Negative, Urine Bilirubin Negative, Urine Urobilinogen Normal, Ur Leukocyte Esterase Negative, Urine RBC 0-5 SEEN, Urine WBC 0-5 SEEN, Ur Squamous Epith Cells 0-5 SEEN, Urine Bacteria RARE, Urine Mucus 0 SEEN 04/24/24 05:15: WBC 13.7 H, RBC 4.18 L, Hgb 13.2, Hct 40.9, MCV 97.8 H, MCH 31.6, MCHC 32.3, RDW Std Deviation 54.2 H, RDW Coeff of [place]se 14.9 H, Plt Count 303, MPV 10.5, Immature Gran % (Auto) 0.500, Neut % (Auto) 67.7, Lymph % (Auto) 20.1, [place] % (Auto) 8.0, Eos % (Auto) 3.3, Baso % (Auto) 0.4, Absolute Neuts (auto) 9.3 H, Absolute Lymphs (auto) 2.75, Nucleated RBC % 0, PT 17.6 H, INR 1.4, Sodium 140, Potassium 3.4 L, Chloride 106, Carbon Dioxide 26.0, Anion Gap 8, BUN 24 H, Creatinine 1.24, Estim Creat Clear Calc 54.83, Est GFR (MDRD) Af Amer 72, Est GFR (MDRD) Non-Af 59 L, BUN/Creatinine Ratio 19.4, Glucose 118 H, Calcium 9.7 Microbiology: Microbiology 04/23/24 16:45 Urine, Clean Catch Urine Culture - Preliminary GNR Poss Pseudomonas sp D/C Instructions DC O2, CPAP, BIPAP Needs Home O2 Discharge instructions: No Meaningful Use Info Meaningful Use Meaningful Use Diagnoses (Choose all that apply): None applicable Ischemic Stroke Statin Dosing Therapy Reference: STATIN DOSE THERAPY REFERENCE: * Patients > 75 years receive moderate or high dose statin therapy. * Patients 75 years or YOUNGER should receive HIGH intensity statin dose unless contraindicated. You will be required to document reason for non-treatment if statin daily dose does not meet guidelines. HIGH DOSE STATIN THERAPY DAILY Atorvastatin > than or = to 40 mg Rosuvastatin > than or = to 20 mg Amlodipine + Atorvastatin > than or = to 2.5/40 mg Ezetimibe + Simvastatin 10/80 mg Simvastatin 80mg Discharge Plan Admission Admit Date/Time: 04/23/24 14:26 Primary Reason for Your Visit: Weakness Attending Provider: Palomo Peck Primary Care Provider: Selene Lovett Consulting Providers: Loreta Herrera Discharge Orders/Prescriptions Prescriptions: Continued gabapentin 100 mg capsule 300 mg PO Q12H Patient Comments: [NO ORIGINAL SIG] warfarin 6 mg tablet 6 mg PO DAILY amlodipine-benazepril 5-20 mg capsule 1 cap PO DAILY montelukast 10 mg tablet 10 mg PO QHS fluticasone propionate 50 mcg/actuation spray,suspension 2 spray INTRANASAL Q12H omeprazole 10 mg capsule,delayed release(DR/EC) 10 mg PO DAILY tamsulosin [Flomax] 0.4 mg capsule 0.4 mg PO DAILY calcium phos,dibas-vitamin D3 [Vitamin D (with calcium)] PO Patient Comments: unsure of dose or specifics acetaminophen 500 mg Tablet 1,000 mg PO TID Qty: 0 0RF sennosides-docusate sodium 8.6-50 mg Tablet 2 tab PO BID 3 Days Qty: 12 0RF Rx Instructions: Take until first bowel movement and then as needed. albuterol sulfate 90 mcg/actuation HFA aerosol inhaler 1 inh inhalation 4X/DAY PRN (Reason: shortness of breath or wheezing) Referrals / Follow Up: Selene Lovett, TRAVEL CLERK-C [Primary Care Provider] - Disposition Disposition (needs filled in before D/C Order can be placed): Home Health Service Charges/Coding Visit Charges Inpatient E&M: 34494 Disch Hosp >30min
--- NOTE | 2024-04-24 15:30 | WOUNDNOTE ---
Prevena wound VAC with leak alarm. Pt states that thing has beeped at least 20 different times. pt is being discharged home, removed the Prevena VAC dressing and applied a Mepilex AG incisional dressing. incision is well approximated with sutures. some mild bruising noted. Pt tolerated well.
== END 2024-04-24 15:42 | disposition home health service (06) ==
LOC: ED 13:41 → MS3 15:43
PROVIDERS: Admitting Provider Internal Medicine; Emergency Provider Emergency Medicine; PCP Nurse Practitioner Family; Referring Provider Emergency Medicine; Visit Provider Hospitalist
DX: R53.81 Other malaise (principal); J44.9 Chronic obstructive pulmonary disease, unspecified; K21.9 Gastro-esophageal reflux disease without esophagitis; Z79.01 Long term (current) use of anticoagulants; G89.18 Other acute postprocedural pain; I10 Essential (primary) hypertension; M25.552 Pain in left hip; Z96.642 Presence of left artificial hip joint; D72.829 Elevated white blood cell count, unspecified; M79.605 Pain in left leg; Z87.891 Personal history of nicotine dependence; E78.00 Pure hypercholesterolemia, unspecified; R53.1 Weakness; Z86.718 Personal history of other venous thrombosis and embolism; Z86.711 Personal history of pulmonary embolism; Z79.899 Other long term (current) drug therapy; D68.51 Activated protein C resistance; N40.1 Benign prostatic hyperplasia with lower urinary tract symptoms; N13.8 Other obstructive and reflux uropathy
CPT/HCPCS: 36415; 73502; 80048; 81001; 85025; 85610; 87040; 87077; 87086; 87088; 87184; 87186; 96372; 97162; 97166; 99221; 99285; A4216; G0378

== ENCOUNTER 2024-06-01 15:15 | Outpatient (RCR) | payer MEDICARE, OTHER, SELFPAY ==
[2024-05-18 14:32] VITALS: BP 188/74; PULSE 76; RESP 16; TEMP 36.6; BMI 38.7
[2024-05-18 17:26] LABS: Absolute Lymphocyte Count 1.78 X10^3/uL (0.83-4.51); Absolute Neutrophil Count 5.9 X10^3/uL (2.0-7.7); Basophil# 0.04 X10^3/uL; Basophil% 0.5 % (0-1); Eosinophil# 0.35 X10^3/uL; Hematocrit 43.1 % (40-54); Hemoglobin 14.3 g/dL (13.0-16.5); Lymphocyte # 1.78 X10^3/ul (0.83-4.51); Lymphocyte % 20.2 % (19-41); Mean Corp Hgb Conc 33.2 g/dL (32-36); Mean Corpuscular Hgb 32.3 pg (27.0-32.0); Mean Corpuscular Volume 97.3 fL (80-94); Monocyte# 0.72 X10^3/uL; Monocyte% 8.2 % (0-10); NRBC Flagged by Analyzer 0 % (0-5); Neutrophil # 5.89 X10^3/uL (2.7-7.7); Neutrophil % 66.9 % (47-70); Platelet Count 279 K/mm3 (150-450); RBC Distribution Width CV 15.1 % (11.6-14.6); RBC Distribution Width SD 54.2 fl (35.1-43.9); Red Blood Count 4.43 M/mm3 (4.6-6.2); White Blood Count 8.8 K/mm3 (4.4-11.0)
[2024-05-18 18:28] LABS: Hemoglobin A1c 6.3 % (<=5.6)
[2024-05-18 18:36] LABS: ALB/GLOB Ratio 1.3 RATIO (0.9-2.4); AST(SGOT) 23 U/L (<=37); Alanine Aminotransfer ALT/SGPT 18 U/L (<=46); Albumin, Serum 4.1 g/dL (3.4-4.8); Alkaline Phosphatase 104 U/L (40-129); Anion Gap 14 (5-15); BUN 18 mg/dL (4-19); BUN/Creat Ratio 15.6 RATIO (10-20); CRP 4.35 mg/L (0.0-3.0); Carbon Dioxide 22.8 mmol/L (21.0-32.0); Chloride 105 mmol/L (98-108); Creatinine, Serum 1.13 mg/dL (0.70-1.20); EST Glomerular Filtration Rate 65 (>60); Estimated Creatinine Clearance 58.33 ml/min (50-250); Globulin 3.2 g/dL (2.2-4.2); Glucose 103 mg/dL (70-99); Potassium 4.1 mmol/L (3.3-5.1); Protein, Total 7.3 g/dL (5.9-8.4); Sodium Level 142 mmol/L (133-145); Total Bilirubin 0.45 mg/dL (0.00-1.30)
--- NOTE | 2024-05-19 20:44 | HP.PCM_ITS ---
History of Present Illness Date of Service: 05/19/24 Chief Complaint: Left anterior hip wound History of Wound: Stalin Cardenas is a delightful 84-year-old male who underwent a left anterior hip replacement on [address] Murillo from [facility]. He had good scores immediately after the hip replacement of this was discharged on 22 April 2024; however, he had worsening weakness at home and fell into some snow outside of his home. EMS had to pick him up and take him to the hospital. He was later discharged from the hospital as he again cleared PT and was discharged. Patient reports that he has been doing well overall at home. He was recently noted to have some wound problems that are superficial over the left hip replacement and was referred to our clinic for evaluation and for potential wound VAC. They have been doing wet-to-dry dressings. He denies any fevers chills or purulent drainage. Dr. Murillo is not concerned about infection of the prosthesis. Of note patient has factor V Leiden and is on Coumadin. Patient is not diabetic He is not a smoker [facility] Medical History GERD (gastroesophageal reflux disease) Wears dentures Walker as ambulation aid Ambulates with cane Prostate disease High cholesterol Pulmonary embolism DVT (deep venous thrombosis) Easy bruising Gastric reflux Former smoker COPD (chronic obstructive pulmonary disease) History of edema Hypertension Home Medications ?Medication ?Instructions ?Recorded ?Last Taken ?Type amlodipine 5 mg-benazepril 20 mg 1 cap PO DAILY 04/19/24 History capsule fluticasone propionate 50 2 spray intranasal Q12H 03/0504/21/24 History mcg/actuation nasal spray,suspension gabapentin 100 mg capsule 300 mg PO Q12H 03/27/2404/04 History montelukast 10 mg tablet 10 mg PO QHS 03/27/24 History omeprazole 10 mg capsule,delayed 10 mg PO DAILY 04/21/24 History release tamsulosin 0.4 mg capsule (Flomax) 0.4 mg PO DAILY 04/21/24 History warfarin 6 mg tablet 6 mg PO DAILY 03/27/2404/21 History calcium phos,dibas-vitamin D3 PO 04/20/24 04/21/24 His tory acetaminophen 500 mg tablet 1,000 mg (2 x 500 mg) PO T ID #0 04/22/24 04/22/24 Rx tabs sennosides 8.6 mg-docusate sodium 2 tab PO BID 3 days #12 tabs 04/22/24 04/21/24 Rx 50 mg tablet albuterol sulfate 90 mcg/actuation 1 inh inhalation 4X /DAY PRN 04/23/24 Unknown History aerosol inhaler shortness of breath or wheez ing doxycycline hyclate 100 mg tablet 100 mg PO BID Unknown History Allergy/AdvReac Type Severity Reaction Status Date / Time Penicillins (PCN) Allergy Intermediate Rash Verified 05/18/24 14:31 Sulfa (Sulfonamide Allergy Mild KIDNEY Verified 05/18/24 14:31 Antibiotics) CRYSTALS aspirin (ASA) Allergy Shortness Verified 05/18/24 14:31 of breath Surgical History History of cataract extraction History of hip replacement Social History Smoking Status: Former smoker Vital Signs Vital Signs Vital Signs: Weight Weight: 240 lb Body Mass Index (BMI) 38.7 Physical Exam Narrative Left anterior groin/thigh with dehisced superior portion of the incision that is partial-thickness down to subcutaneous tissue and fascia/muscle. There is no exposed prosthesis. There is no purulent drainage. No surrounding induration or signs of infection at this time. Wound measures 2.5 x 4 cm Debridement Note Debridement Note Wound debrided: Left anterior hip wound Laterality: Left Wound Grade/Stage: 3 Type of Debridement: Excisional debridement Anesthesia Used: 4% Lidocaine Solution Depth: to muscle (To the fascia) Percentage of wound debrided: 100 Instrument Used: 7mm curette, Forceps and - (Scissors for sharp excision) Tissue Removed: Necrotic debris including necrotic fibrinous fascia/muscle debris Severity: Necrosis of Muscle (And exposed fascia) Amount of bleeding with debridement: Mild Bleeding Controlled with: Compression and gauze Patient tolerated procedure: Patient tolerated procedure well Post-Debridement Measurements and Additional Note: Post-Debridement Measurements/Treatment WC - Nurse 1 - General Ulcer Assessment Start: 05/18/24 14:30 Freq: Status: Active Protocol: ODILIA Activity Type Activity Date Activity User E-sign Co-sign Detail Recorded Client Recorded Date Recorded By Document 05/18/24 14:32 [id number] 05/18/24 14:42 05/18/24 14:32 - Today's Visit Information Type of service Initial Visit Arrival Mode Ambulatory,Cane Accompanied by significant other Patient Identification Verified (Name & Yes ) Height and Weight Height 5 ft 6 in Weight 240 lb Weight in Pounds 240.0 lbs Body Mass Index (BMI) 38.7 BMI Classification Obese Vital Signs Temperature (97.8 F-99.1 F) 97.9 F Temperature Source Temporal Pulse Rate (60-100) 76 Pulse Location Monitor Respiratory Rate (12-18) 16 Respiratory rate source Observation Oxygen Delivery Method Room Air Blood Pressure (90/60-120/80) 188/74 H Blood Pressure Mean 112 Source Monitor Position Semi-Fowlers Blood Pressure Location Left Arm History Since Last Visit- (Skip if this is Patient's initial visit) Left Footwear Regular Shoe Right Footwear Regular Shoe Pain Scale: 0-10 Numeric Is Patient Pain Free? No Communication Assessment Preferred language Citizen Of [place] Marketing Strategy Lead Required No Able to Read Yes Able to Write Yes Communication Tools None Caregiver Communication Skills No Impairment Impairment Right Hearing Abillity Normal Left Hearing Abillity Normal Visual Assistive Devices None Teaching Assessment Preferences Verbal,Written, Demonstration Barriers to Learning None Readiness To Learn Excellent Willingness to Engage in Self Management High Activies Readiness to Engage in Self Management High Activities Anxiety Level Calm Cooperation Cooperative Perception Coherent Interest in Health Problem Asks Questions Education Importance Acknowledges Need Does Patient Smoke tobacco or other Yes substances Smoking Status Former smoker Is Patient Diabetic No Functional Assessment Recent Decline in Ability to Perform Denies Any Declines Culture/Druze/Slitter And Cutter Operator Cultural/Druze Needs that may affect No Treatment Plan Would you allow our hospital executive director of nursing to No meet you for the purpose of spiritual/ emotional support? Slitter And Cutter Operator to contact place of yazdanism No Teaching: Wound Center Welcome to the Wound Care Center English CISNEROS - Nurse 1 - General Ulcer Measurement Start: 05/18/24 14:30 Freq: Status: Active Protocol: Activity Type Activity Date Activity User E-sign Co-sign Detail Recorded Client Recorded Date Recorded By Document 05/18/24 14:32 KW [id number] 05/18/24 14:42 05/18/24 14:32 Wound Center Nurse 1 #1 LT HIP POST OP -Current Size (cm) - Length 5 -Current Size (cm) - Width 2.2 -Current Size (cm) - Depth 0.6 -Total Square Cm 11.0 -Date of Last Picture (Recall this 05/18/24 field) -Undermining/Tunneling Yes -Undermining/Tunneling Starts (O'clock 10 ) -Undermining/Tunneling Ends (O'clock) 2 -Maximum Distance (cm) 1.6 -Exudate Amt Small -Exudate Type Serosanguineous -Wound Margin Distinct, Outline Attached -Granulation Amt Large (67-100%) -Granulation Quality Red -Necrosis Amt Medium (34-66%) -Texture (Kady-wound Skin Appearance) Assessed -Moisture (Kady-wound Skin Appearance) Assessed -Color (Kady-wound Skin Appearance) Assessed -Temperature (Kady-wound Skin No Abnormality Appearance) (Pt Warm) -Tenderness on Palpation (Kady-wound No Skin Appearance) -Ulcer Cleansing Soap and Water -Foul Odor after Cleansing No -Anesthetic Used 4% Lidocaine Solution WC - Nurse 2 - General Ulcer CM Notes Start: 05/18/24 14:30 Freq: Status: Active Protocol: Activity Type Activity Date Activity User E-sign Co-sign Detail Recorded Client Recorded Date Recorded By Document 05/18/24 15:18 CHENG [id number] 05/18/24 15:21 05/18/24 15:18 Wound Center Nurse 2 -Time 15:18 -Correct Patient Yes -Correct Side, Site, Position Yes -Correct Procedure Yes -Procedure Performed Yes -Type of Procedure Debridement -Clinical Debridement Muscle / Fascia -Tissue Removed Fascia -Post Debridement (cm) - Length 2.5 -Post Debridement (cm) - Width 4.0 -Post Debridement (cm) - Depth 1.0 -Total Square (Post) (cm) 10.00 -Area of Debridement (cm) - Length 2.5 -Area of Debridement (cm) - Width 4.0 -Total Square (Area) (cm) 10.00 -Tunneling No -Undermining/Tunneling No -Circular Undermining No -Wound/Ulcer Outcome Not Healed -Ulcer Cleansing Rinsed/ Irrigated with Saline -Foul Odor after Cleansing No -Bioengineered Tissue No -Bleeding Controlled with Pressure -Treatment Response Procedure Tolerated Well -Offloading No -Debridement - Muscle / Fascia, 1st Yes 20sq cm Pain Scale: 0-10 Numeric Is Patient Pain Free? Yes - Nurse 3 - General Ulcer D/C NN Start: 05/18/24 14:30 Freq: Status: Active Protocol: Activity Type Activity Date Activity User E-sign Co-sign Detail Recorded Client Recorded Date Recorded By Document 05/18/24 15:36 DL [id number] 05/18/24 15:37 DL 05/18/24 15:36 Wound Care Center Nurse 3 #1 LT HIP POST OP -Ulcer Cleansing Rinsed/ Irrigated with Saline -Foul Odor after Cleansing No -Primary Dressing Applied Hysept -Primary Dressing Covered/Secured with Dry Gauze, Secured with Tape -Other Covering abd -Hysept 1 Treatment Response Procedure Tolerated Well Pain Scale: 0-10 Numeric Is Patient Pain Free? Yes WC - Visit Discharge Discharge Condition Stable Ambulatory Status Ambulatory,Cane Transportation Private Auto Facility Type Home Health Orders Sent Yes Lab / Micro Data 05/18/24 15:59 05/18/24 15:59 Charges/Coding Visit Charges Office Visits / Consults: 76871 OV L4 New 45min (Discussed medical problems, performed procedure, discussed with other specialists his care, and performed a thorough history and physical exam) Procedures Integumentary 111xxx-113xx: [id number] Kim musc/fascia 20 sq cm/< (With 25 modifier) Assessment/Plan Assessment/Plan (1) Open wnd hip/thigh-complicated: CODE(S): S71.009A - Unspecified open wound, unspecified hip, initial encounter; S71.109A - Unspecified open wound, unspecified thigh, initial encounter PLAN: Patient has a relatively superficial left anterior hip wound without any exposed hardware. Following removal of the debris and the necrotic tissue at the base of the wound, the wound looked significantly healthier with beefy red granulation tissue. Plan for wet-to-dry dressings twice daily with Dakin's until the wound VAC arrives (ordered 3 times per week wound VAC changes). Anticipate wound VAC for definitive therapy Follow-up in the wound care center weekly on Mondays or sooner if concerns of infection
[2024-05-20 08:09] LABS: Prealbumin 26 mg/dL (9-32)
[2024-05-25 15:11] VITALS: BP 123/52; PULSE 86; RESP 16; TEMP 36.1; BMI 38.7
--- NOTE | 2024-05-26 07:58 | PN.PCM_ITS ---
History of Present Illness Date of Service: 05/25/24 Chief Complaint: Left anterior hip wound History of Wound: HPI from 19 May 2024 Stalin Cardenas is a delightful 84-year-old male who underwent a left anterior hip replacement on [address] Murillo from [facility]. He had good scores immediately after the hip replacement of this was discharged on 22 April 2024; however, he had worsening weakness at home and fell into some snow outside of his home. EMS had to pick him up and take him to the hospital. He was later discharged from the hospital as he again cleared PT and was discharged. Patient reports that he has been doing well overall at home. He was recently noted to have some wound problems that are superficial over the left hip replacement and was referred to our clinic for evaluation and for potential wound VAC. They have been doing wet-to-dry dressings. He denies any fevers chills or purulent drainage. Dr. Murillo is not concerned about infection of the prosthesis. Of note patient has factor V Leiden and is on Coumadin. Patient is not diabetic He is not a smoker Subjective Subjective Current encounter, 25 May 2024: Doing well overall. Tolerating VAC changes. No fevers chills or drainage. Pain controlled. Objective Data Objective Data Vital Signs: Vital Signs Temp Pulse Resp BP O2 Del Method 97 F L 86 16 123/52 H Room Air 05/25/24 15:11 05/25/24 15:11 05/25/24 15:11 05/25/24 15:11 05/25/24 15:11 Oxygen Delivery Method Room Air Weight: 240 lb Body Mass Index (BMI) 38.7 Lab / Micro Data 05/18/24 15:59 05/18/24 15:59 Charges/Coding Procedures Integumentary 111xxx-113xx: [id number] Kim subq tissue 20 sq cm/< Physical Exam Narrative Left anterior groin/thigh with dehisced superior portion of the incision that is partial-thickness down to subcutaneous tissue and fascia/muscle. There is no exposed prosthesis. There is no purulent drainage. No surrounding induration or signs of infection at this time. Wound measures 1 x 4 cm (smaller) Debridement Note Debridement Note Wound debrided: Left anterior hip wound Laterality: Left Wound Grade/Stage: Stage III Type of Debridement: Excisional debridement Anesthesia Used: 4% Lidocaine Solution Depth: in the subcutaneous layer Percentage of wound debrided: 100 Instrument Used: 7mm curette Tissue Removed: Necrotic fibrinous exudate and fatty debris in the subcutaneous layer Severity: Fat Layer Exposed Amount of bleeding with debridement: Moderate Bleeding Controlled with: Compression and gauze Patient tolerated procedure: Patient tolerated procedure well Post-Debridement Measurements and Additional Note: Post-Debridement Measurements/Treatment WC - Nurse 1 - General Ulcer Assessment Start: 05/18/24 14:30 Freq: Status: Active Protocol: ODILIA Activity Type Activity Date Activity User E-sign Co-sign Detail Recorded Client Recorded Date Recorded By Document 05/18/24 14:32 KW [id number] 05/18/24 14:42 KW Document 05/25/24 15:11 BM [id number] 05/25/24 15:20 BMF 05/18/24 05/25/24 14:32 15:11 - Today's Visit Information Type of service Initial Visit Follow-up Visit (Physician/DECORATING AND ASSEMBLY SUPERVISOR ) Arrival Mode Ambulatory,Cane Ambulatory Transfer Assistance None Accompanied by significant other Patient Identification Verified (Name & Yes Yes ) Patient Requires Transmission-Based No Precautions Height and Weight Height 5 ft 6 in Weight 240 lb Weight in Pounds 240.0 lbs Body Mass Index (BMI) 38.7 38.7 BMI Classification Obese Obese Vital Signs Temperature (97.8 F-99.1 F) 97.9 F 97 F L Temperature Source Temporal Temporal Pulse Rate (60-100) 76 86 Pulse Location Monitor Monitor Respiratory Rate (12-18) 16 16 Respiratory rate source Observation Observation Oxygen Delivery Method Room Air Room Air Blood Pressure (90/60-120/80) 188/74 H 123/52 H Blood Pressure Mean (mm Hg) 112 75 Source Monitor Monitor Position Semi-Fowlers Sitting Blood Pressure Location Left Arm Left Arm History Since Last Visit- (Skip if this is Patient's initial visit) Have you changed medications since your No last visit? Any new allergies or adverse reactions No Had a fall/change in ADL's that may No increase risk of falls Signs or symptoms of abuse and/or No neglect since last visit Have you been in the hospital since your No last visit? Has dressing in place as prescribed Yes Has compression in place as prescribed N/A Has offloadiing in place as prescribed N/A Experienced any changes in pain level or No management Left Footwear Regular Shoe Regular Shoe Right Footwear Regular Shoe Regular Shoe Pain Scale: 0-10 Numeric Is Patient Pain Free? No Yes Communication Assessment Preferred language French Grinding Mill Operator Required No Able to Read Yes Able to Write Yes Communication Tools None Caregiver Communication Skills No Impairment Impairment Right Hearing Abillity Normal Left Hearing Abillity Normal Visual Assistive Devices None Teaching Assessment Preferences Verbal,Written, Demonstration Barriers to Learning None Readiness To Learn Excellent Willingness to Engage in Self Management High Activies Readiness to Engage in Self Management High Activities Anxiety Level Calm Cooperation Cooperative Perception Coherent Interest in Health Problem Asks Questions Education Importance Acknowledges Need Does Patient Smoke tobacco or other Yes substances Smoking Status Former smoker Is Patient Diabetic No Functional Assessment Recent Decline in Ability to Perform Denies Any Declines Culture/Restoration/Risk Management Internship Cultural/Restoration Needs that may affect No Treatment Plan Would you allow our hospital diesel dragline operator to No meet you for the purpose of spiritual/ emotional support? Risk Management Internship to contact place of protestant No Teaching: Wound Center Welcome to the Wound Care Center French WC - Nurse 1 - General Ulcer Measurement Start: 05/18/24 14:30 Freq: Status: Active Protocol: Activity Type Activity Date Activity User E-sign Co-sign Detail Recorded Client Recorded Date Recorded By Document 05/18/24 14:32 [id number] 05/18/24 14:42 KW Document 05/25/24 15:11 [facility] [id number] 05/25/24 15:20 [facility] 05/18/24 05/25/24 14:32 15:11 Wound Center Nurse 1 #1 LT HIP POST OP -Combined with other wound No -Current Size (cm) - Length 5 4.5 -Current Size (cm) - Width 2.2 1.9 -Current Size (cm) - Depth 0.6 0.8 -Total Square Cm 11.0 8.55 -Date of Last Picture (Recall this 05/18/24 05/25/24 field) -Photo Taken Yes -Undermining/Tunneling Yes Yes -Undermining/Tunneling Starts (O'clock 10 10 ) -Undermining/Tunneling Ends (O'clock) 2 1 -Maximum Distance (cm) 1.6 0.9 -Exudate Amt Small Medium -Exudate Type Serosanguineous Serosanguineous -Wound Margin Distinct, Thickened Outline Attached -Granulation Amt Large (67-100%) Large (67-100%) -Granulation Quality Red Red -Necrosis Amt Medium (34-66%) Small (1-33%) -Necrotic Tissue Type Adherent Slough -Texture (Kady-wound Skin Appearance) Assessed Assessed -Moisture (Kady-wound Skin Appearance) Assessed Assessed -Color (Kady-wound Skin Appearance) Assessed Assessed, Ecchymosis -Temperature (Kady-wound Skin No Abnormality No Abnormality Appearance) (Pt Warm) (Pt Warm) -Tenderness on Palpation (Kady-wound No No Skin Appearance) -Ulcer Cleansing Soap and Water Soap and Water -Foul Odor after Cleansing No No -Anesthetic Used 4% Lidocaine 5% Lidocaine Solution Gel WC - Nurse 2 - General Ulcer CM Notes Start: 05/18/24 14:30 Freq: Status: Active Protocol: Activity Type Activity Date Activity User E-sign Co-sign Detail Recorded Client Recorded Date Recorded By Document 05/18/24 15:18 [id number] 05/18/24 15:21 Document 05/25/24 15:33 [id number] 05/25/24 15:35 05/18/24 05/25/24 15:18 15:33 Wound Center Nurse 2 #1 LT HIP POST OP -Time 15:18 15:33 -Correct Patient Yes Yes -Correct Side, Site, Position Yes Yes -Correct Procedure Yes Yes -Procedure Performed Yes Yes -Type of Procedure Debridement Debridement -Clinical Debridement Muscle / Fascia Subcutaneous -Tissue Removed Fascia Subcutaneous -Post Debridement (cm) - Length 2.5 1 -Post Debridement (cm) - Width 4.0 4 -Post Debridement (cm) - Depth 1.0 1.0 -Total Square (Post) (cm) 10.00 4 -Area of Debridement (cm) - Length 2.5 1 -Area of Debridement (cm) - Width 4.0 4 -Total Square (Area) (cm) 10.00 4 -Tunneling No No -Undermining/Tunneling No No -Circular Undermining No No -Wound/Ulcer Outcome Not Healed Not Healed -Ulcer Cleansing Rinsed/ Rinsed/ Irrigated with Irrigated with Saline Saline -Foul Odor after Cleansing No No -Bioengineered Tissue No No -Bleeding Controlled with Pressure Pressure -Treatment Response Procedure Procedure Tolerated Well Tolerated Well -Offloading No No -Debridement - Subq, 1st 20sq cm Yes -Debridement - Muscle / Fascia, 1st Yes 20sq cm Pain Scale: 0-10 Numeric Is Patient Pain Free? Yes Yes WC - Nurse 3 - General Ulcer D/C NN Start: 05/18/24 14:30 Freq: Status: Active Protocol: Activity Type Activity Date Activity User E-sign Co-sign Detail Recorded Client Recorded Date Recorded By Document 05/18/24 15:36 DL [id number] 05/18/24 15:37 DL Document 05/25/24 15:44 KW [id number] 05/25/24 15:45 KW 05/18/24 05/25/24 15:36 15:44 Wound Care Center Nurse 3 #1 LT HIP POST OP -Ulcer Cleansing Rinsed/ Rinsed/ Irrigated with Irrigated with Saline Saline -Foul Odor after Cleansing No No -Negative Pressure Wound Therapy Continue -Pieces of Black Foam Inserted 1 -NPWT Application Charge NPWT & Debridement (nc ) -Primary Dressing Applied Hysept -Primary Dressing Covered/Secured with Dry Gauze, Secured with Tape -Other Covering abd -Hysept 1 Treatment Response Procedure Tolerated Well Pain Scale: 0-10 Numeric Is Patient Pain Free? Yes Yes WC - Visit Discharge Discharge Condition Stable Stable Ambulatory Status Ambulatory,Cane Ambulatory,Cane Transportation Private Auto Private Auto Accompanied by Medication Reconcilliation completed & No provided to patient/care provider Clinical Summary of Care Provided Yes Notes: please bridge away to thigh for comfort Facility Type Home Health Orders Sent Yes Assessment/Plan Assessment/Plan (1) Open wnd hip/thigh-complicated: CODE(S): S71.009A - Unspecified open wound, unspecified hip, initial encounter; S71.109A - Unspecified open wound, unspecified thigh, initial encounter PLAN: Patient has a relatively superficial left anterior hip wound without any exposed hardware. Following removal of the debris and the necrotic tissue at the base of the wound, the wound looked significantly healthier with beefy red granulation tissue. Plan for wet-to-dry dressings twice daily with Dakin's until the wound VAC arrives (ordered 3 times per week wound VAC changes). Anticipate wound VAC for definitive therapy Follow-up in the wound care center weekly on Mondays or sooner if concerns of infection Plan from 25 May 2024: Making improvements with VAC changes. Should continue VAC changes and let the wound granulate and healing. Patient happy with the plan. Follow-up in 1 week for wound check.
--- NOTE | 2024-05-27 12:00 | WC ---
PHOTO 05/25/24 LEFT HIP
[2024-06-01 15:37] VITALS: BP 196/80; PULSE 82; RESP 18; TEMP 35.8; BMI 38.7
--- NOTE | 2024-06-01 17:39 | PCM.WC.PN ---
History of Present Illness Date of Service: 06/01/24 Chief Complaint: Left anterior hip wound History of Wound: HPI from 19 May 2024 Stalin Cardenas is a delightful 84-year-old male who underwent a left anterior hip replacement on [address] Murillo from [facility]. He had good scores immediately after the hip replacement of this was discharged on 22 April 2024; however, he had worsening weakness at home and fell into some snow outside of his home. EMS had to pick him up and take him to the hospital. He was later discharged from the hospital as he again cleared PT and was discharged. Patient reports that he has been doing well overall at home. He was recently noted to have some wound problems that are superficial over the left hip replacement and was referred to our clinic for evaluation and for potential wound VAC. They have been doing wet-to-dry dressings. He denies any fevers chills or purulent drainage. Dr. Murillo is not concerned about infection of the prosthesis. Of note patient has factor V Leiden and is on Coumadin. Patient is not diabetic He is not a smoker Subjective Subjective 25 May 2024: Doing well overall. Tolerating VAC changes. No fevers chills or drainage. Pain controlled. Current encounter, 01 June 2024: Making significant progress. Tolerating dressing changes. Doing quite well overall. Objective Data Objective Data Vital Signs: Vital Signs Temp Pulse Resp BP O2 Del Method 96.5 F L 82 18 196/80 H Room Air 06/01/24 15:37 06/01/24 15:37 06/01/24 15:37 06/01/24 15:37 05/25/24 15:11 Oxygen Delivery Method Room Air Weight: 240 lb Body Mass Index (BMI) 38.7 Lab / Micro Data 05/18/24 15:59 05/18/24 15:59 Charges/Coding Procedures Integumentary 111xxx-113xx: [id number] Kim subq tissue 20 sq cm/< Physical Exam Narrative Left anterior groin/thigh with dehisced superior portion of the incision that is partial-thickness down to subcutaneous tissue (fascia and muscle was cannulated) and there is obviously no exposed prosthesis. There is no purulent drainage. No surrounding induration or signs of infection at this time. Wound measures 4 x 2 cm and is 0.5 cm deep Debridement Note Debridement Note Wound debrided: Left anterior groin wound Laterality: Left Wound Grade/Stage: Stage III Type of Debridement: Excisional debridement Anesthesia Used: 4% Lidocaine Solution Depth: in the subcutaneous layer Percentage of wound debrided: 100 Instrument Used: 7mm curette Tissue Removed: Necrotic hypertrophic granulation tissue and fibrinous exudate in the subQ Severity: Fat Layer Exposed Amount of bleeding with debridement: Mild Bleeding Controlled with: Compression and gauze Patient tolerated procedure: Patient tolerated procedure well Post-Debridement Measurements and Additional Note: Post-Debridement Measurements/Treatment - Nurse 1 - General Ulcer Assessment Start: 05/18/24 14:30 Freq: Status: Active Protocol: BLAYNEpfwaterworksPHONG Activity Type Activity Date Activity User E-sign Co-sign Detail Recorded Client Recorded Date Recorded By Document 05/18/24 14:32 KW [id number] 05/18/24 14:42 KW Document 05/25/24 15:11 BMF [id number] 05/25/24 15:20 BMF Document 06/01/24 15:37 DL [id number] 06/01/24 15:44 DL 05/18/24 05/25/24 06/01/24 14:32 15:11 15:37 - Today's Visit Information Type of service Initial Visit Follow-up Visit Follow-up Visit (Physician/DIRECTOR GLOBAL STRATE[employer]IC PUBLISHER SALES (Physician/DIRECTOR GLOBAL STRATE[employer]IC PUBLISHER SALES ) ) Arrival Mode Ambulatory,Cane Ambulatory Ambulatory Transfer Assistance None None Accompanied by significant other Patient Identification Verified (Name & Yes Yes Yes ) Patient Requires Transmission-Based No No Precautions Height and Weight Height 5 ft 6 in Weight 240 lb Weight in Pounds 240.0 lbs Body Mass Index (BMI) 38.7 38.7 38.7 BMI Classification Obese Obese Obese Vital Signs Temperature (97.8 F-99.1 F) 97.9 F 97 F L 96.5 F L Temperature Source Temporal Temporal Temporal Pulse Rate (60-100) 76 86 82 Pulse Location Monitor Monitor Monitor Respiratory Rate (12-18) 16 16 18 Respiratory rate source Observation Observation Observation Oxygen Delivery Method Room Air Room Air Blood Pressure (90/60-120/80) 188/74 H 123/52 H 196/80 H Blood Pressure Mean (mm Hg) 112 75 118 Source Monitor Monitor Monitor Position Semi-Fowlers Sitting Blood Pressure Location Left Arm Left Arm History Since Last Visit- (Skip if this is Patient's initial visit) Have you changed medications since your No No last visit? Any new allergies or adverse reactions No No Had a fall/change in ADL's that may No No increase risk of falls Signs or symptoms of abuse and/or No No neglect since last visit Have you been in the hospital since your No No last visit? Has dressing in place as prescribed Yes Yes Has compression in place as prescribed N/A N/A Has offloadiing in place as prescribed N/A N/A Experienced any changes in pain level or No No management Left Footwear Regular Shoe Regular Shoe Right Footwear Regular Shoe Regular Shoe Pain Scale: 0-10 Numeric Is Patient Pain Free? No Yes Yes Communication Assessment Preferred language Greek Passenger Service Manager Required No Able to Read Yes Able to Write Yes Communication Tools None Caregiver Communication Skills No Impairment Impairment Right Hearing Abillity Normal Left Hearing Abillity Normal Visual Assistive Devices None Teaching Assessment Preferences Verbal,Written, Demonstration Barriers to Learning None Readiness To Learn Excellent Willingness to Engage in Self Management High Activies Readiness to Engage in Self Management High Activities Anxiety Level Calm Cooperation Cooperative Perception Coherent Interest in Health Problem Asks Questions Education Importance Acknowledges Need Does Patient Smoke tobacco or other Yes substances Smoking Status Former smoker Is Patient Diabetic No Functional Assessment Recent Decline in Ability to Perform Denies Any Declines Culture/Taoist/Senior Major Gifts Officer Cultural/Taoist Needs that may affect No Treatment Plan Would you allow our hospital stitcher standard machine to No meet you for the purpose of spiritual/ emotional support? Senior Major Gifts Officer to contact place of mormon No Teaching: Wound Center Welcome to the Wound Care Center English CISNEROS - Nurse 1 - General Ulcer Measurement Start: 05/18/24 14:30 Freq: Status: Active Protocol: Activity Type Activity Date Activity User E-sign Co-sign Detail Recorded Client Recorded Date Recorded By Document 05/18/24 14:32 KW [id number] 05/18/24 14:42 KW Document 05/25/24 15:11 BMF [id number] 05/25/24 15:20 BMF Document 06/01/24 15:37 DL [id number] 06/01/24 15:44 DL 05/18/24 05/25/24 06/01/24 14:32 15:11 15:37 Wound Center Nurse 1 #1 LT HIP POST OP -Combined with other wound No -Current Size (cm) - Length 5 4.5 3 -Current Size (cm) - Width 2.2 1.9 2.2 -Current Size (cm) - Depth 0.6 0.8 0.7 -Total Square Cm 11.0 8.55 6.6 -Date of Last Picture (Recall this 05/18/24 05/25/24 field) -Photo Taken Yes Yes -Undermining/Tunneling Yes Yes -Undermining/Tunneling Starts (O'clock 10 10 ) -Undermining/Tunneling Ends (O'clock) 2 1 -Maximum Distance (cm) 1.6 0.9 -Exudate Amt Small Medium Medium -Exudate Type Serosanguineous Serosanguineous Serosanguineous -Wound Margin Distinct, Thickened Distinct, Outline Outline Attached Attached -Granulation Amt Large (67-100%) Large (67-100%) Large (67-100%) -Granulation Quality Red Red Red -Necrosis Amt Medium (34-66%) Small (1-33%) Small (1-33%) -Necrotic Tissue Type Adherent Slough Adherent Slough -Structure Exposed N/A -Texture (Kady-wound Skin Appearance) Assessed Assessed Scarring -Moisture (Kady-wound Skin Appearance) Assessed Assessed No Abnormality -Color (Kady-wound Skin Appearance) Assessed Assessed, No Abnormality Ecchymosis -Temperature (Kady-wound Skin No Abnormality No Abnormality No Abnormality Appearance) (Pt Warm) (Pt Warm) (Pt Warm) -Tenderness on Palpation (Kady-wound No No No Skin Appearance) -Ulcer Cleansing Soap and Water Soap and Water Soap and Water -Foul Odor after Cleansing No No No -Anesthetic Used 4% Lidocaine 5% Lidocaine 5% Lidocaine Solution Gel Gel WC - Nurse 2 - General Ulcer CM Notes Start: 05/18/24 14:30 Freq: Status: Active Protocol: Activity Type Activity Date Activity User E-sign Co-sign Detail Recorded Client Recorded Date Recorded By Document 05/18/24 15:18 [id number] 05/18/24 15:21 Document 05/25/24 15:33 [id number] 05/25/24 15:35 Document 06/01/24 16:01 [id number] 06/01/24 16:02 05/18/24 05/25/24 06/01/24 15:18 15:33 16:01 Wound Center Nurse 2 #1 LT HIP POST OP -Time 15:18 15:33 16:01 -Correct Patient Yes Yes Yes -Correct Side, Site, Position Yes Yes Yes -Correct Procedure Yes Yes Yes -Procedure Performed Yes Yes Yes -Type of Procedure Debridement Debridement Debridement -Clinical Debridement Muscle / Fascia Subcutaneous Subcutaneous -Tissue Removed Fascia Subcutaneous Subcutaneous -Post Debridement (cm) - Length 2.5 1 2.0 -Post Debridement (cm) - Width 4.0 4 4 -Post Debridement (cm) - Depth 1.0 1.0 0.5 -Total Square (Post) (cm) 10.00 4 8.0 -Area of Debridement (cm) - Length 2.5 1 2 -Area of Debridement (cm) - Width 4.0 4 4 -Total Square (Area) (cm) 10.00 4 8 -Tunneling No No No -Undermining/Tunneling No No No -Circular Undermining No No No -Wound/Ulcer Outcome Not Healed Not Healed Not Healed -Ulcer Cleansing Rinsed/ Rinsed/ Rinsed/ Irrigated with Irrigated with Irrigated with Saline Saline Saline -Foul Odor after Cleansing No No No -Bioengineered Tissue No No No -Bleeding Controlled with Pressure Pressure Pressure -Treatment Response Procedure Procedure Procedure Tolerated Well Tolerated Well Tolerated Well -Offloading No No No -Debridement - Subq, 1st 20sq cm Yes Yes -Debridement - Muscle / Fascia, 1st Yes 20sq cm Pain Scale: 0-10 Numeric Is Patient Pain Free? Yes Yes Yes WC - Nurse 3 - General Ulcer D/C NN Start: 05/18/24 14:30 Freq: Status: Active Protocol: Activity Type Activity Date Activity User E-sign Co-sign Detail Recorded Client Recorded Date Recorded By Document 05/18/24 15:36 DL [id number] 05/18/24 15:37 DL Document 05/25/24 15:44 KW [id number] 05/25/24 15:45 KW Document 06/01/24 16:12 DL [id number] 06/01/24 16:14 DL 05/18/24 05/25/24 06/01/24 15:36 15:44 16:12 Wound Care Center Nurse 3 #1 LT HIP POST OP -Ulcer Cleansing Rinsed/ Rinsed/ Soap and Water Irrigated with Irrigated with Saline Saline -Foul Odor after Cleansing No No -Negative Pressure Wound Therapy Continue Continue -Pieces of Black Foam Inserted 1 -NPWT Application Charge NPWT & NPWT & Debridement (nc Debridement (nc ) ) -Setting (mmHg) 125 -Negative Pressure is Continuous -Primary Dressing Applied Hysept -Primary Dressing Covered/Secured with Dry Gauze, Secured with Tape -Other Covering abd -Hysept 1 Treatment Response Procedure Procedure Tolerated Well Tolerated Well Pain Scale: 0-10 Numeric Is Patient Pain Free? Yes Yes Yes WC - Visit Discharge Discharge Condition Stable Stable Stable Ambulatory Status Ambulatory,Cane Ambulatory,Cane Ambulatory Transportation Private Auto Private Auto Private Auto Accompanied by Medication Reconcilliation completed & No provided to patient/care provider Clinical Summary of Care Provided Yes Notes: please bridge away to thigh for comfort Facility Type Home Health Home Health Orders Sent Yes Yes Assessment/Plan Assessment/Plan (1) Open wnd hip/thigh-complicated: CODE(S): S71.009A - Unspecified open wound, unspecified hip, initial encounter; S71.109A - Unspecified open wound, unspecified thigh, initial encounter PLAN: Patient has a relatively superficial left anterior hip wound without any exposed hardware. Following removal of the debris and the necrotic tissue at the base of the wound, the wound looked significantly healthier with beefy red granulation tissue. Plan for wet-to-dry dressings twice daily with Dakin's until the wound VAC arrives (ordered 3 times per week wound VAC changes). Anticipate wound VAC for definitive therapy Follow-up in the wound care center weekly on Mondays or sooner if concerns of infection Plan from 25 May 2024: Making improvements with VAC changes. Should continue VAC changes and let the wound granulate and healing. Patient happy with the plan. Follow-up in 1 week for wound check. Plan from 01 June 2024: Okay to place occlusive dressing and shower (no getting wound wet) in between VAC changes. Continue doxycycline 100 mg p.o. twice daily per orthopedics request ([facility] agrees). Continue 3 times per week VAC changes. Anticipate closure of wound with VAC changes.
--- NOTE | 2024-06-03 11:38 | WC ---
PHOTO 06/01/24 LEFT HIP POST OP
== END 2024-06-01 23:59 | disposition home or self-care (01) ==
LOC: WC 15:15
PROVIDERS: PCP Nurse Practitioner Family; Referring Provider Surgery Plastic and Reconstructive Surgery; Visit Provider Surgery Plastic and Reconstructive Surgery
DX: T81.31XA Disruption of external operation (surgical) wound, not elsewhere classified, initial encounter (principal); D68.2 Hereditary deficiency of other clotting factors; J44.9 Chronic obstructive pulmonary disease, unspecified; S71.109A Unspecified open wound, unspecified thigh, initial encounter; E78.00 Pure hypercholesterolemia, unspecified; Z87.891 Personal history of nicotine dependence; K21.9 Gastro-esophageal reflux disease without esophagitis; I10 Essential (primary) hypertension; Z79.82 Long term (current) use of aspirin; Z79.01 Long term (current) use of anticoagulants; Z96.642 Presence of left artificial hip joint; Y83.8 Other surgical procedures as the cause of abnormal reaction of the patient, or of later complication, without mention of misadventure at the time of the procedure; Z86.718 Personal history of other venous thrombosis and embolism; Z86.711 Personal history of pulmonary embolism; Z79.899 Other long term (current) drug therapy
CPT/HCPCS: 11042; 11043; 36415; 80053; 83036; 84134; 85025; 86140; 99214; G0463

== ENCOUNTER 2024-06-29 14:15 | Outpatient (RCR) | payer MEDICARE, OTHER, SELFPAY ==
[2024-06-02 00:34] VITALS: BP 196/80; PULSE 82; RESP 18; TEMP 35.8; BMI 38.7
[2024-06-08 15:13] VITALS: BP 140/69; PULSE 91; RESP 16; BMI 38.7
--- NOTE | 2024-06-08 17:38 | PCM.WC.PN ---
History of Present Illness Date of Service: 06/08/24 Chief Complaint: Left anterior hip wound History of Wound: HPI from 19 May 2024 Stalin Cardenas is a delightful 84-year-old male who underwent a left anterior hip replacement on [address] Murillo from [facility]. He had good scores immediately after the hip replacement of this was discharged on 22 April 2024; however, he had worsening weakness at home and fell into some snow outside of his home. EMS had to pick him up and take him to the hospital. He was later discharged from the hospital as he again cleared PT and was discharged. Patient reports that he has been doing well overall at home. He was recently noted to have some wound problems that are superficial over the left hip replacement and was referred to our clinic for evaluation and for potential wound VAC. They have been doing wet-to-dry dressings. He denies any fevers chills or purulent drainage. Dr. Murillo is not concerned about infection of the prosthesis. Of note patient has factor V Leiden and is on Coumadin. Patient is not diabetic He is not a smoker Subjective Subjective 25 May 2024: Doing well overall. Tolerating VAC changes. No fevers chills or drainage. Pain controlled. 01 June 2024: Making significant progress. Tolerating dressing changes. Doing quite well overall. Current encounter, 08 June 2024: Continues to make progress with smaller wound. Dr. Murillo has released him. He is walking well on his new hip Objective Data Objective Data Vital Signs: Vital Signs Temp Pulse Resp BP O2 Del Method 96.5 F L 91 16 140/69 H Room Air 06/02/24 00:34 06/08/24 15:13 06/08/24 15:13 06/08/24 15:13 06/08/24 15:13 Oxygen Delivery Method Room Air Weight: 240 lb Body Mass Index (BMI) 38.7 Charges/Coding Procedures Integumentary 111xxx-113xx: [id number] Kim subq tissue 20 sq cm/< Physical Exam Narrative Left anterior groin/thigh with dehisced superior portion of the incision that is partial-thickness down to subcutaneous tissue (fascia and muscle have all granulated) and there is no exposed prosthesis. There is no purulent drainage. No surrounding induration or signs of infection at this time. Wound measures 3 x 1.5 cm and is 0.5 cm deep Continues to improve and get smaller Debridement Note Debridement Note Wound debrided: Left anterior hip wound Laterality: Left Wound Grade/Stage: 3 Type of Debridement: Excisional debridement Anesthesia Used: 4% Lidocaine Solution Depth: in the subcutaneous layer Percentage of wound debrided: 100 Instrument Used: 7mm curette Severity: Fat Layer Exposed Amount of bleeding with debridement: Mild Bleeding Controlled with: Compression and gauze Patient tolerated procedure: Patient tolerated procedure well Post-Debridement Measurements and Additional Note: Post-Debridement Measurements/Treatment - Nurse 1 - General Ulcer Assessment Start: 06/08/24 15:13 Freq: Status: Active Protocol: ODILIA Activity Type Activity Date Activity User E-sign Co-sign Detail Recorded Client Recorded Date Recorded By Document 06/08/24 15:13 MICHAELA [id number] 06/08/24 15:25 KW 06/08/24 15:13 WC - Today's Visit Information Type of service Follow-up Visit (Physician/HOME HEALTH PHYSICAL THERAPIST ) Arrival Mode Ambulatory Accompanied by Patient Identification Verified (Name & Yes ) Height and Weight Body Mass Index (BMI) 38.7 BMI Classification Obese Vital Signs Temperature Source Temporal Pulse Rate (60-100) 91 Pulse Location Monitor Respiratory Rate (12-18) 16 Respiratory rate source Observation Oxygen Delivery Method Room Air Blood Pressure (90/60-120/80) 140/69 H Blood Pressure Mean (mm Hg) 92 Source Monitor Position Semi-Fowlers Blood Pressure Location Left Arm History Since Last Visit- (Skip if this is Patient's initial visit) Have you changed medications since your No last visit? Any new allergies or adverse reactions No Had a fall/change in ADL's that may No increase risk of falls Signs or symptoms of abuse and/or No neglect since last visit Have you been in the hospital since your No last visit? Has dressing in place as prescribed Yes Has compression in place as prescribed N/A Has offloadiing in place as prescribed N/A Experienced any changes in pain level or No management Left Footwear Regular Shoe Right Footwear Regular Shoe Pain Scale: 0-10 Numeric Is Patient Pain Free? Yes - Nurse 1 - General Ulcer Measurement Start: 06/08/24 15:13 Freq: Status: Active Protocol: Activity Type Activity Date Activity User E-sign Co-sign Detail Recorded Client Recorded Date Recorded By Document 06/08/24 15:13 [id number] 06/08/24 15:25 06/08/24 15:13 Wound Center Nurse 1 #1 LT HIP POST OP -Current Size (cm) - Length 2.5 -Current Size (cm) - Width 2 -Current Size (cm) - Depth 1 -Total Square Cm 5.0 -Date of Last Picture (Recall this 06/08/24 field) -Exudate Amt Small -Exudate Type Serosanguineous -Wound Margin Distinct, Outline Attached -Granulation Amt Large (67-100%) -Granulation Quality Red -Necrosis Amt Small (1-33%) -Necrotic Tissue Type Adherent Slough -Texture (Kady-wound Skin Appearance) Assessed -Moisture (Kady-wound Skin Appearance) Assessed -Color (Kady-wound Skin Appearance) Assessed -Temperature (Kady-wound Skin No Abnormality Appearance) (Pt Warm) -Tenderness on Palpation (Kady-wound No Skin Appearance) -Ulcer Cleansing Soap and Water -Foul Odor after Cleansing No -Anesthetic Used 4% Lidocaine Solution WC - Nurse 2 - General Ulcer CM Notes Start: 06/08/24 15:13 Freq: Status: Active Protocol: Activity Type Activity Date Activity User E-sign Co-sign Detail Recorded Client Recorded Date Recorded By Document 06/08/24 15:50 [id number] 06/08/24 15:51 06/08/24 15:50 Wound Center Nurse 2 -Time 15:50 -Correct Patient Yes -Correct Side, Site, Position Yes -Correct Procedure Yes -Procedure Performed Yes -Type of Procedure Debridement -Clinical Debridement Subcutaneous -Tissue Removed Subcutaneous -Post Debridement (cm) - Length 3.0 -Post Debridement (cm) - Width 1.5 -Post Debridement (cm) - Depth 0.5 -Total Square (Post) (cm) 4.50 -Area of Debridement (cm) - Length 3.0 -Area of Debridement (cm) - Width 1.5 -Total Square (Area) (cm) 4.50 -Tunneling No -Undermining/Tunneling No -Circular Undermining No -Wound/Ulcer Outcome Not Healed -Ulcer Cleansing Rinsed/ Irrigated with Saline -Foul Odor after Cleansing No -Bioengineered Tissue No -Bleeding Controlled with Pressure -Treatment Response Procedure Tolerated Well -Offloading No -Debridement - Subq, 1st 20sq cm Yes Pain Scale: 0-10 Numeric Is Patient Pain Free? Yes - Nurse 3 - General Ulcer D/C NN Start: 06/08/24 15:13 Freq: Status: Active Protocol: Activity Type Activity Date Activity User E-sign Co-sign Detail Recorded Client Recorded Date Recorded By Document 06/08/24 16:23 [id number] 06/08/24 16:24 CHENG 06/08/24 16:23 Wound Care Center Nurse 3 #1 LT HIP POST OP -Ulcer Cleansing Rinsed/ Irrigated with Saline -Foul Odor after Cleansing No -Negative Pressure Wound Therapy Continue -Pieces of Black Foam Inserted 1 -NPWT Application Charge NPWT </= 50 sq cm ($) -Foam Supply Charges Patient Supplied Dressing -Setting (mmHg) 125 -Negative Pressure is Continuous Pain Scale: 0-10 Numeric Is Patient Pain Free? Yes WC - Visit Discharge Discharge Condition Stable Ambulatory Status Ambulatory Transportation Private Auto Accompanied by Significant other Medication Reconcilliation completed & No provided to patient/care provider Clinical Summary of Care Provided No Assessment/Plan Assessment/Plan (1) Open wnd hip/thigh-complicated: CODE(S): S71.009A - Unspecified open wound, unspecified hip, initial encounter; S71.109A - Unspecified open wound, unspecified thigh, initial encounter PLAN: Patient has a relatively superficial left anterior hip wound without any exposed hardware. Following removal of the debris and the necrotic tissue at the base of the wound, the wound looked significantly healthier with beefy red granulation tissue. Plan for wet-to-dry dressings twice daily with Dakin's until the wound VAC arrives (ordered 3 times per week wound VAC changes). Anticipate wound VAC for definitive therapy Follow-up in the wound care center weekly on Mondays or sooner if concerns of infection Plan from 25 May 2024: Making improvements with VAC changes. Should continue VAC changes and let the wound granulate and healing. Patient happy with the plan. Follow-up in 1 week for wound check. Plan from 01 June 2024: Okay to place occlusive dressing and shower (no getting wound wet) in between VAC changes. Continue doxycycline 100 mg p.o. twice daily per orthopedics request ([facility] agrees). Continue 3 times per week VAC changes. Anticipate closure of wound with VAC changes. Plan from 08 June 2024: Continue VAC changes 3 times per week. Follow-up in 2 weeks. Continue plan for doxycycline and occlusive dressing during showers
--- NOTE | 2024-06-09 11:15 | WC ---
PHOTO 06/08/24 LEFT HIP POST OP
--- NOTE | 2024-06-15 08:47 | WC ---
Patient called asking if he will need another prescription for Doxycycline once he runs out on ? Spoke to Dr Duarte and he said to take the antibiotic as prescribed and will follow up next Saturday at his wound center appt. Patient verbalized understanding.
[2024-06-22 14:28] VITALS: BP 174/69; PULSE 81; RESP 15; TEMP 36.1; BMI 38.7
--- NOTE | 2024-06-22 14:55 | PN.PCM_ITS ---
History of Present Illness Date of Service: 06/22/24 Chief Complaint: Left anterior hip wound History of Wound: HPI from 19 May 2024 Stalin Cardenas is a delightful 84-year-old male who underwent a left anterior hip replacement on [address] Murillo from [facility]. He had good scores immediately after the hip replacement of this was discharged on 22 April 2024; however, he had worsening weakness at home and fell into some snow outside of his home. EMS had to pick him up and take him to the hospital. He was later discharged from the hospital as he again cleared PT and was discharged. Patient reports that he has been doing well overall at home. He was recently noted to have some wound problems that are superficial over the left hip replacement and was referred to our clinic for evaluation and for potential wound VAC. They have been doing wet-to-dry dressings. He denies any fevers chills or purulent drainage. Dr. Murillo is not concerned about infection of the prosthesis. Of note patient has factor V Leiden and is on Coumadin. Patient is not diabetic He is not a smoker Subjective Subjective 25 May 2024: Doing well overall. Tolerating VAC changes. No fevers chills or drainage. Pain controlled. 01 June 2024: Making significant progress. Tolerating dressing changes. Doing quite well overall. 08 June 2024: Continues to make progress with smaller wound. Dr. Murillo has released him. He is walking well on his new hip. Current encounter, 22 June 2024: Doing well overall. Wound is getting significantly smaller with the VAC. No fevers or chills or drainage. Objective Data Objective Data Vital Signs: Vital Signs Temp Pulse Resp BP O2 Del Method 97 F L 81 15 174/69 H Room Air 06/22/24 14:28 06/22/24 14:28 06/22/24 14:28 06/22/24 14:28 06/08/24 15:13 Oxygen Delivery Method Room Air Weight: 240 lb Body Mass Index (BMI) 38.7 Charges/Coding Procedures Integumentary 111xxx-113xx: 23110 Kim subq tissue 20 sq cm/< Physical Exam Narrative Left anterior groin/thigh with dehisced superior portion of the incision that is partial-thickness down to subcutaneous tissue (fascia and muscle have all granulated) and there is no exposed prosthesis. There is no purulent drainage. No surrounding induration or signs of infection at this time. Wound measures 2 x 1.5 cm and is 0.2 cm deep Continues to improve and get smaller Debridement Note Debridement Note Wound debrided: Left anterior thigh wound from arthroplasty Laterality: Left Wound Grade/Stage: 3 Type of Debridement: Excisional debridement Anesthesia Used: 4% Lidocaine Solution Depth: in the subcutaneous layer Percentage of wound debrided: 100 Instrument Used: 5mm curette Tissue Removed: Necrotic fibrinous exudate in the subcutaneous/fat layer Severity: Fat Layer Exposed Amount of bleeding with debridement: Mild Bleeding Controlled with: Compression and gauze Patient tolerated procedure: Patient tolerated procedure well Post-Debridement Measurements and Additional Note: Post-Debridement Measurements/Treatment WC - Nurse 1 - General Ulcer Assessment Start: 06/08/24 15:13 Freq: Status: Active Protocol: ODILIA Activity Type Activity Date Activity User E-sign Co-sign Detail Recorded Client Recorded Date Recorded By Document 06/08/24 15:13 KW [id number] 06/08/24 15:25 KW Document 06/22/24 14:28 KW [id number] 06/22/24 14:33 KW 06/08/24 06/22/24 15:13 14:28 - Today's Visit Information Type of service Follow-up Visit Follow-up Visit (Physician/ACTIVE DIRECTORY ENGINEER (Physician/ACTIVE DIRECTORY ENGINEER ) ) Arrival Mode Ambulatory Ambulatory Transfer Assistance None Accompanied by Patient Identification Verified (Name & Yes Yes ) Patient Requires Transmission-Based No Precautions Height and Weight Body Mass Index (BMI) 38.7 38.7 BMI Classification Obese Obese Vital Signs Temperature (97.8 F-99.1 F) 97 F L Temperature Source Temporal Temporal Pulse Rate (60-100) 91 81 Pulse Location Monitor Monitor Respiratory Rate (12-18) 16 15 Respiratory rate source Observation Observation Oxygen Delivery Method Room Air Blood Pressure (90/60-120/80) 140/69 H 174/69 H Blood Pressure Mean (mm Hg) 92 104 Source Monitor Monitor Position Semi-Fowlers Sitting Blood Pressure Location Left Arm Left Arm History Since Last Visit- (Skip if this is Patient's initial visit) Have you changed medications since your No No last visit? Any new allergies or adverse reactions No No Had a fall/change in ADL's that may No No increase risk of falls Signs or symptoms of abuse and/or No No neglect since last visit Have you been in the hospital since your No No last visit? Has dressing in place as prescribed Yes Yes Has compression in place as prescribed N/A Yes Has offloadiing in place as prescribed N/A N/A Experienced any changes in pain level or No No management Left Footwear Regular Shoe Right Footwear Regular Shoe Pain Scale: 0-10 Numeric Is Patient Pain Free? Yes Yes WC - Nurse 1 - General Ulcer Measurement Start: 06/08/24 15:13 Freq: Status: Active Protocol: Activity Type Activity Date Activity User E-sign Co-sign Detail Recorded Client Recorded Date Recorded By Document 06/08/24 15:13 KW [id number] 06/08/24 15:25 KW Document 06/22/24 14:28 KW [id number] 06/22/24 14:33 KW 06/08/24 06/22/24 15:13 14:28 Wound Center Nurse 1 #1 LT HIP POST OP -Current Size (cm) - Length 2.5 2.5 -Current Size (cm) - Width 2 2 -Current Size (cm) - Depth 1 0.3 -Total Square Cm 5.0 5.0 -Date of Last Picture (Recall this 06/08/24 field) -Exudate Amt Small Medium -Exudate Type Serosanguineous Serosanguineous -Wound Margin Distinct, Outline Attached -Granulation Amt Large (67-100%) Medium (34-66%) -Granulation Quality Red -Slough/Fibrin Yes -Necrosis Amt Small (1-33%) Medium (34-66%) -Necrotic Tissue Type Adherent Slough Adherent Slough -Texture (Kady-wound Skin Appearance) Assessed Assessed -Moisture (Kady-wound Skin Appearance) Assessed Assessed -Color (Kady-wound Skin Appearance) Assessed Assessed -Temperature (Kady-wound Skin No Abnormality No Abnormality Appearance) (Pt Warm) (Pt Warm) -Tenderness on Palpation (Kady-wound No No Skin Appearance) -Ulcer Cleansing Soap and Water Soap and Water -Foul Odor after Cleansing No No -Anesthetic Used 4% Lidocaine 4% Lidocaine Solution Solution WC - Nurse 2 - General Ulcer CM Notes Start: 06/08/24 15:13 Freq: Status: Active Protocol: Activity Type Activity Date Activity User E-sign Co-sign Detail Recorded Client Recorded Date Recorded By Document 06/08/24 15:50 [id number] 06/08/24 15:51 Document 06/22/24 14:45 [id number] 06/22/24 14:46 06/08/24 06/22/24 15:50 14:45 Wound Center Nurse 2 #1 LT HIP POST OP -Time 15:50 14:45 -Correct Patient Yes Yes -Correct Side, Site, Position Yes Yes -Correct Procedure Yes Yes -Procedure Performed Yes Yes -Type of Procedure Debridement Debridement -Clinical Debridement Subcutaneous Subcutaneous -Tissue Removed Subcutaneous Subcutaneous -Post Debridement (cm) - Length 3.0 1.5 -Post Debridement (cm) - Width 1.5 2 -Post Debridement (cm) - Depth 0.5 0.2 -Total Square (Post) (cm) 4.50 3.0 -Area of Debridement (cm) - Length 3.0 1.5 -Area of Debridement (cm) - Width 1.5 2 -Total Square (Area) (cm) 4.50 3.0 -Tunneling No No -Undermining/Tunneling No No -Circular Undermining No No -Wound/Ulcer Outcome Not Healed Not Healed -Ulcer Cleansing Rinsed/ Rinsed/ Irrigated with Irrigated with Saline Saline -Foul Odor after Cleansing No No -Bioengineered Tissue No No -Bleeding Controlled with Pressure Pressure -Treatment Response Procedure Procedure Tolerated Well Tolerated Well -Offloading No No -Debridement - Subq, 1st 20sq cm Yes Yes Pain Scale: 0-10 Numeric Is Patient Pain Free? Yes Yes - Nurse 3 - General Ulcer D/C NN Start: 06/08/24 15:13 Freq: Status: Active Protocol: Activity Type Activity Date Activity User E-sign Co-sign Detail Recorded Client Recorded Date Recorded By Document 06/08/24 16:23 [id number] 06/08/24 16:24 06/08/24 16:23 Wound Care Center Nurse 3 #1 LT HIP POST OP -Ulcer Cleansing Rinsed/ Irrigated with Saline -Foul Odor after Cleansing No -Negative Pressure Wound Therapy Continue -Pieces of Black Foam Inserted 1 -NPWT Application Charge NPWT </= 50 sq cm ($) -Foam Supply Charges Patient Supplied Dressing -Setting (mmHg) 125 -Negative Pressure is Continuous Pain Scale: 0-10 Numeric Is Patient Pain Free? Yes - Visit Discharge Discharge Condition Stable Ambulatory Status Ambulatory Transportation Private Auto Accompanied by Significant other Medication Reconcilliation completed & No provided to patient/care provider Clinical Summary of Care Provided No Assessment/Plan Assessment/Plan (1) Open wnd hip/thigh-complicated: CODE(S): S71.009A - Unspecified open wound, unspecified hip, initial encounter; S71.109A - Unspecified open wound, unspecified thigh, initial encounter PLAN: Patient has a relatively superficial left anterior hip wound without any exposed hardware. Following removal of the debris and the necrotic tissue at the base of the wound, the wound looked significantly healthier with beefy red granulation tissue. Plan for wet-to-dry dressings twice daily with Dakin's until the wound VAC arrives (ordered 3 times per week wound VAC changes). Anticipate wound VAC for definitive therapy Follow-up in the wound care center weekly on Mondays or sooner if concerns of infection Plan from 25 May 2024: Making improvements with VAC changes. Should continue VAC changes and let the wound granulate and healing. Patient happy with the plan. Follow-up in 1 week for wound check. Plan from 01 June 2024: Okay to place occlusive dressing and shower (no getting wound wet) in between VAC changes. Continue doxycycline 100 mg p.o. twice daily per orthopedics request ([facility] agrees). Continue 3 times per week VAC changes. Anticipate closure of wound with VAC changes. Plan from 08 June 2024: Continue VAC changes 3 times per week. Follow-up in 2 weeks. Continue plan for doxycycline and occlusive dressing during showers. Plan from 22 June 2024: Doing well overall. Okay to discontinue/hold wound VAC for now (bring to next appointment). Follow-up in 1 week. Plan for Rebekah dressings daily for 1 week.
--- NOTE | 2024-06-23 10:26 | WC ---
PHOTO 06/22/24 RIGHT HIP POST OP
[2024-06-29 14:04] VITALS: BP 122/72; PULSE 101; RESP 16; TEMP 36.6; BMI 38.7
--- NOTE | 2024-06-30 06:01 | PN.PCM_ITS ---
History of Present Illness Date of Service: 06/29/24 Chief Complaint: Left anterior hip wound History of Wound: HPI from 19 May 2024 Stalin Cardenas is a delightful 84-year-old male who underwent a left anterior hip replacement on [address] Murillo from [facility]. He had good scores immediately after the hip replacement of this was discharged on 22 April 2024; however, he had worsening weakness at home and fell into some snow outside of his home. EMS had to pick him up and take him to the hospital. He was later discharged from the hospital as he again cleared PT and was discharged. Patient reports that he has been doing well overall at home. He was recently noted to have some wound problems that are superficial over the left hip replacement and was referred to our clinic for evaluation and for potential wound VAC. They have been doing wet-to-dry dressings. He denies any fevers chills or purulent drainage. Dr. Murillo is not concerned about infection of the prosthesis. Of note patient has factor V Leiden and is on Coumadin. Patient is not diabetic He is not a smoker Subjective Subjective 25 May 2024: Doing well overall. Tolerating VAC changes. No fevers chills or drainage. Pain controlled. 01 June 2024: Making significant progress. Tolerating dressing changes. Doing quite well overall. 08 June 2024: Continues to make progress with smaller wound. Dr. Murillo has released him. He is walking well on his new hip. 22 June 2024: Doing well overall. Wound is getting significantly smaller with the VAC. No fevers or chills or drainage. Current encounter, 30 June 2024: Progressing well with wound care. Feels like wound is getting smaller. Happy not to have the VAC Objective Data Objective Data Vital Signs: Vital Signs Temp Pulse Resp BP O2 Del Method 97.8 F 101 H 16 122/72 H Room Air 06/29/24 14:04 06/29/24 14:04 06/29/24 14:04 06/29/24 14:04 06/29/24 14:04 Oxygen Delivery Method Room Air Weight: 240 lb Body Mass Index (BMI) 38.7 Charges/Coding Procedures Integumentary 111xxx-113xx: 70587 Kim subq tissue 20 sq cm/< Physical Exam Narrative Left anterior groin/thigh with wound that is partial-thickness down to subcutaneous tissue (fascia and muscle have all granulated) and there is no exposed prosthesis. There is no purulent drainage. No surrounding induration or signs of infection at this time. Wound measures 2 x 1 cm and is 0.2 cm deep Continues to improve and get smaller Debridement Note Debridement Note Wound debrided: Left anterior hip wound Laterality: Left Wound Grade/Stage: Stage III Type of Debridement: Excisional debridement Anesthesia Used: 4% Lidocaine Solution Depth: in the subcutaneous layer Percentage of wound debrided: 100 Instrument Used: 5mm curette Tissue Removed: Necrotic fibrinous exudate and fat/hypertrophic granulation tissue Severity: Fat Layer Exposed Amount of bleeding with debridement: Mild Bleeding Controlled with: Compression and gauze Patient tolerated procedure: Patient tolerated procedure well Post-Debridement Measurements and Additional Note: Post-Debridement Measurements/Treatment - Nurse 1 - General Ulcer Assessment Start: 06/08/24 15:13 Freq: Status: Active Protocol: [email or web address] Activity Type Activity Date Activity User E-sign Co-sign Detail Recorded Client Recorded Date Recorded By Document 06/08/24 15:13 [employer] [id number] 06/08/24 15:25 KW Document 06/22/24 14:28 KW [id number] 06/22/24 14:33 KW Document 06/29/24 14:04 [facility] [id number] 06/29/24 14:13 [facility] 06/08/24 06/22/24 06/29/24 15:13 14:28 14:04 - Today's Visit Information Type of service Follow-up Visit Follow-up Visit Follow-up Visit (Physician/HYDRAULIC BOOM OPERATOR (Physician/HYDRAULIC BOOM OPERATOR (Physician/HYDRAULIC BOOM OPERATOR ) ) ) Arrival Mode Ambulatory Ambulatory Ambulatory Transfer Assistance None None Accompanied by friend Patient Identification Verified (Name & Yes Yes Yes ) Patient Requires Transmission-Based No No Precautions Height and Weight Body Mass Index (BMI) 38.7 38.7 38.7 BMI Classification Obese Obese Obese Vital Signs Temperature (97.8 F-99.1 F) 97 F L 97.8 F Temperature Source Temporal Temporal Temporal Pulse Rate (60-100) 91 81 101 H Pulse Location Monitor Monitor Monitor Respiratory Rate (12-18) 16 15 16 Respiratory rate source Observation Observation Observation Oxygen Delivery Method Room Air Room Air Blood Pressure (90/60-120/80) 140/69 H 174/69 H 122/72 H Blood Pressure Mean (mm Hg) 92 104 88 Source Monitor Monitor Monitor Position Semi-Fowlers Sitting Sitting Blood Pressure Location Left Arm Left Arm Left Arm History Since Last Visit- (Skip if this is Patient's initial visit) Have you changed medications since your No No No last visit? Any new allergies or adverse reactions No No No Had a fall/change in ADL's that may No No No increase risk of falls Signs or symptoms of abuse and/or No No No neglect since last visit Have you been in the hospital since your No No No last visit? Has dressing in place as prescribed Yes Yes Yes Has compression in place as prescribed N/A Yes N/A Has offloadiing in place as prescribed N/A N/A N/A Experienced any changes in pain level or No No No management Left Footwear Regular Shoe Regular Shoe Right Footwear Regular Shoe Regular Shoe Pain Scale: 0-10 Numeric Is Patient Pain Free? Yes Yes Yes WC - Nurse 1 - General Ulcer Measurement Start: 06/08/24 15:13 Freq: Status: Active Protocol: Activity Type Activity Date Activity User E-sign Co-sign Detail Recorded Client Recorded Date Recorded By Document 06/08/24 15:13 KW [id number] 06/08/24 15:25 KW Document 06/22/24 14:28 KW [id number] 06/22/24 14:33 KW Document 06/29/24 14:04 [facility] [id number] 06/29/24 14:13 [facility] 06/08/24 06/22/24 06/29/24 15:13 14:28 14:04 Wound Center Nurse 1 #1 LT HIP POST OP -Combined with other wound No -Current Size (cm) - Length 2.5 2.5 2 -Current Size (cm) - Width 2 2 1.5 -Current Size (cm) - Depth 1 0.3 0.2 -Total Square Cm 5.0 5.0 3.0 -Date of Last Picture (Recall this 06/08/24 06/29/24 field) -Photo Taken Yes -Tunneling No -Undermining/Tunneling No -Circular Undermining No -Exudate Amt Small Medium Medium -Exudate Type Serosanguineous Serosanguineous Serosanguineous -Wound Margin Distinct, Distinct, Outline Outline Attached Attached -Granulation Amt Large (67-100%) Medium (34-66%) Medium (34-66%) -Granulation Quality Red Pale,Red -Slough/Fibrin Yes Yes -Necrosis Amt Small (1-33%) Medium (34-66%) Medium (34-66%) -Necrotic Tissue Type Adherent Slough Adherent Slough Adherent Slough -Texture (Kady-wound Skin Appearance) Assessed Assessed Assessed, Scarring -Moisture (Kady-wound Skin Appearance) Assessed Assessed Assessed -Color (Kady-wound Skin Appearance) Assessed Assessed Assessed -Temperature (Kady-wound Skin No Abnormality No Abnormality No Abnormality Appearance) (Pt Warm) (Pt Warm) (Pt Warm) -Tenderness on Palpation (Kady-wound No No No Skin Appearance) -Ulcer Cleansing Soap and Water Soap and Water Rinsed/ Irrigated with Saline -Foul Odor after Cleansing No No No -Anesthetic Used 4% Lidocaine 4% Lidocaine 5% Lidocaine Solution Solution Gel WC - Nurse 2 - General Ulcer CM Notes Start: 06/08/24 15:13 Freq: Status: Active Protocol: Activity Type Activity Date Activity User E-sign Co-sign Detail Recorded Client Recorded Date Recorded By Document 06/08/24 15:50 [id number] 06/08/24 15:51 Document 06/22/24 14:45 [id number] 06/22/24 14:46 Document 06/29/24 14:29 [id number] 06/29/24 14:30 06/08/24 06/22/24 06/29/24 15:50 14:45 14:29 Wound Center Nurse 2 #1 LT HIP POST OP -Time 15:50 14:45 14:29 -Correct Patient Yes Yes Yes -Correct Side, Site, Position Yes Yes Yes -Correct Procedure Yes Yes Yes -Procedure Performed Yes Yes Yes -Type of Procedure Debridement Debridement Debridement -Clinical Debridement Subcutaneous Subcutaneous Subcutaneous -Tissue Removed Subcutaneous Subcutaneous Subcutaneous -Post Debridement (cm) - Length 3.0 1.5 2 -Post Debridement (cm) - Width 1.5 2 1 -Post Debridement (cm) - Depth 0.5 0.2 0.2 -Total Square (Post) (cm) 4.50 3.0 2 -Area of Debridement (cm) - Length 3.0 1.5 2 -Area of Debridement (cm) - Width 1.5 2 1 -Total Square (Area) (cm) 4.50 3.0 2 -Tunneling No No No -Undermining/Tunneling No No No -Circular Undermining No No No -Wound/Ulcer Outcome Not Healed Not Healed Not Healed -Ulcer Cleansing Rinsed/ Rinsed/ Rinsed/ Irrigated with Irrigated with Irrigated with Saline Saline Saline -Foul Odor after Cleansing No No No -Bioengineered Tissue No No No -Bleeding Controlled with Pressure Pressure Pressure -Treatment Response Procedure Procedure Procedure Tolerated Well Tolerated Well Tolerated Well -Offloading No No No -Debridement - Subq, 1st 20sq cm Yes Yes Yes Pain Scale: 0-10 Numeric Is Patient Pain Free? Yes Yes Yes - Nurse 3 - General Ulcer D/C NN Start: 06/08/24 15:13 Freq: Status: Active Protocol: Activity Type Activity Date Activity User E-sign Co-sign Detail Recorded Client Recorded Date Recorded By Document 06/08/24 16:23 JF [id number] 06/08/24 16:24 Document 06/22/24 14:59 KW [id number] 06/22/24 15:05 KW Document 06/29/24 14:36 DS [id number] 06/29/24 14:41 DS 06/08/24 06/22/24 06/29/24 16:23 14:59 14:36 Wound Care Center Nurse 3 #1 LT HIP POST OP -Ulcer Cleansing Rinsed/ Irrigated with Saline -Foul Odor after Cleansing No -Negative Pressure Wound Therapy Continue -Pieces of Black Foam Inserted 1 -NPWT Application Charge NPWT </= 50 sq cm ($) -Foam Supply Charges Patient Supplied Dressing -Setting (mmHg) 125 -Negative Pressure is Continuous -Primary Dressing Applied Promogran Promogran Rebekah Matter Rebekah Matter -Primary Dressing Covered/Secured with Dry Gauze, Dry Gauze, Secured with Secured with Tape Tape -Promogran Rebekah Matter 1 1 Pain Scale: 0-10 Numeric Is Patient Pain Free? Yes Yes Yes WC - Visit Discharge Discharge Condition Stable Stable Stable Ambulatory Status Ambulatory Ambulatory Ambulatory Transportation Private Auto Private Auto Private Auto Accompanied by Significant other Medication Reconcilliation completed & No No provided to patient/care provider Clinical Summary of Care Provided No Yes Assessment/Plan Assessment/Plan (1) Open wnd hip/thigh-complicated: CODE(S): S71.009A - Unspecified open wound, unspecified hip, initial encounter; S71.109A - Unspecified open wound, unspecified thigh, initial encounter PLAN: Patient has a relatively superficial left anterior hip wound without any exposed hardware. Following removal of the debris and the necrotic tissue at the base of the wound, the wound looked significantly healthier with beefy red granulation tissue. Plan for wet-to-dry dressings twice daily with Dakin's until the wound VAC arriv es (ordered 3 times per week wound VAC changes). Anticipate wound VAC for definitive therapy Follow-up in the wound care center weekly on Mondays or sooner if concerns of infection Plan from 25 May 2024: Making improvements with VAC changes. Should continue VAC changes and let the wound granulate and healing. Patient happy with the plan. Follow-up in 1 week for wound check. Plan from 01 June 2024: Okay to place occlusive dressing and shower (no getting wound wet) in between VAC changes. Continue doxycycline 100 mg p.o. twice daily per orthopedics request ([facility] agrees). Continue 3 times per week VAC changes. Anticipate closure of wound with VAC changes. Plan from 08 June 2024: Continue VAC changes 3 times per week. Follow-up in 2 weeks. Continue plan for doxycycline and occlusive dressing during showers. Plan from 22 June 2024: Doing well overall. Okay to discontinue/hold wound VAC for now (bring to next appointment). Follow-up in 1 week. Plan for Rebekah dressings daily for 1 week. Plan from 29 June 2024: Continue Rebekah dressings daily for 1 week Making significant progress Okay for showers Do not submerge underwater Follow-up in 2 weeks
--- NOTE | 2024-06-30 09:06 | WC ---
PHOTO 06/29/24 LEFT HIP
== END 2024-07-01 23:59 | disposition home or self-care (01) ==
LOC: WC 14:15
PROVIDERS: PCP Nurse Practitioner Family; Referring Provider Surgery Plastic and Reconstructive Surgery; Visit Provider Surgery Plastic and Reconstructive Surgery
DX: T81.31XA Disruption of external operation (surgical) wound, not elsewhere classified, initial encounter (principal); D68.51 Activated protein C resistance; Z79.01 Long term (current) use of anticoagulants; Y79.2 Prosthetic and other implants, materials and accessory orthopedic devices associated with adverse incidents; Z96.642 Presence of left artificial hip joint
CPT/HCPCS: 11042; 97605

== ENCOUNTER 2024-07-20 14:07 | Outpatient (RCR) | payer MEDICARE, OTHER, SELFPAY ==
[2024-07-02 00:33] VITALS: BP 122/72; PULSE 101; RESP 16; TEMP 36.6; BMI 38.7
[2024-07-20 13:55] VITALS: BP 166/83; PULSE 71; RESP 16; TEMP 36; BMI 38.7
--- NOTE | 2024-07-20 15:24 | PN.PCM_ITS ---
History of Present Illness Date of Service: 07/20/24 Chief Complaint: Left anterior hip wound History of Wound: HPI from 19 May 2024 Stalin Cardenas is a delightful 84-year-old male who underwent a left anterior hip replacement on [address] Murillo from [facility]. He had good scores immediately after the hip replacement of this was discharged on 22 April 2024; however, he had worsening weakness at home and fell into some snow outside of his home. EMS had to pick him up and take him to the hospital. He was later discharged from the hospital as he again cleared PT and was discharged. Patient reports that he has been doing well overall at home. He was recently noted to have some wound problems that are superficial over the left hip replacement and was referred to our clinic for evaluation and for potential wound VAC. They have been doing wet-to-dry dressings. He denies any fevers chills or purulent drainage. Dr. Murillo is not concerned about infection of the prosthesis. Of note patient has factor V Leiden and is on Coumadin. Patient is not diabetic He is not a smoker Subjective Subjective 25 May 2024: Doing well overall. Tolerating VAC changes. No fevers chills or drainage. Pain controlled. 01 June 2024: Making significant progress. Tolerating dressing changes. Doing quite well overall. 08 June 2024: Continues to make progress with smaller wound. Dr. Murillo has released him. He is walking well on his new hip. 22 June 2024: Doing well overall. Wound is getting significantly smaller with the VAC. No fevers or chills or drainage. 30 June 2024: Progressing well with wound care. Feels like wound is getting smaller. Happy not to have the VAC Current encounter, 20 Jul 2024: Doing well overall and endorses good dressing changes. Reports that the wound is pretty much gone Objective Data Objective Data Vital Signs: Vital Signs Temp Pulse Resp BP 96.8 F L 71 16 166/83 H 07/20/24 13:55 07/20/24 13:55 07/20/24 13:55 07/20/24 13:55 Weight: 240 lb Body Mass Index (BMI) 38.7 Charges/Coding Visit Charges Office Visits / Consults: 67240 OV L2 Est 10min Physical Exam Narrative Left anterior groin/thigh with 0.2 x 0.2 cm raw area with no depth. No underlying wounds or drainage. No signs of infection. Debridement Note Debridement Note No debridement was completed: No debridement was completed today Post-Debridement Measurements and Additional Note: Post-Debridement Measurements/Treatment - Nurse 1 - General Ulcer Assessment Start: 07/20/24 13:54 Freq: Status: Active Protocol: ODILIA Activity Type Activity Date Activity User E-sign Co-sign Detail Recorded Client Recorded Date Recorded By Document 07/20/24 13:55 [email or web address] [id number] 07/20/24 14:01 07/20/24 13:55 WC - Today's Visit Information Type of service Follow-up Visit (Physician/OFFICE COMMUNICATION PROFESSOR ) Arrival Mode Ambulatory Accompanied by Patient Identification Verified (Name & Yes ) Patient Requires Transmission-Based No Precautions Height and Weight Body Mass Index (BMI) 38.7 BMI Classification Obese Vital Signs Temperature (97.8 F-99.1 F) 96.8 F L Temperature Source Temporal Pulse Rate (60-100) 71 Pulse Location Monitor Respiratory Rate (12-18) 16 Respiratory rate source Observation Blood Pressure (90/60-120/80) 166/83 H Blood Pressure Mean (mm Hg) 110 Source Monitor Position Supine Blood Pressure Location Left Forearm History Since Last Visit- (Skip if this is Patient's initial visit) Have you changed medications since your No last visit? Any new allergies or adverse reactions No Had a fall/change in ADL's that may No increase risk of falls Signs or symptoms of abuse and/or No neglect since last visit Have you been in the hospital since your No last visit? Has dressing in place as prescribed Yes Has compression in place as prescribed N/A Has offloadiing in place as prescribed N/A Experienced any changes in pain level or No management Left Footwear Regular Shoe Right Footwear Regular Shoe Pain Scale: 0-10 Numeric Is Patient Pain Free? Yes - Nurse 1 - General Ulcer Measurement Start: 07/20/24 13:54 Freq: Status: Active Protocol: Activity Type Activity Date Activity User E-sign Co-sign Detail Recorded Client Recorded Date Recorded By Document 07/20/24 13:55 [email or web address] [id number] 07/20/24 14:01 07/20/24 13:55 Wound Center Nurse 1 #1 LT HIP POST OP -Combined with other wound No -Current Size (cm) - Length 0.1 -Current Size (cm) - Width 0.1 -Current Size (cm) - Depth 0.1 -Total Square Cm 0.01 -Photo Taken Yes -Epithelialization Small 1-33% -Tunneling No -Undermining/Tunneling No -Circular Undermining No -Exudate Amt None Present -Exudate Type Serosanguineous -Wound Margin Flat & Intact -Granulation Amt Large (67-100%) -Granulation Quality Red -Slough/Fibrin Yes -Necrosis Amt Small (1-33%) -Necrotic Tissue Type Adherent Slough -Structure Exposed N/A -Texture (Kady-wound Skin Appearance) Assessed, Scarring -Moisture (Kady-wound Skin Appearance) Assessed,Dry/ Scaly -Color (Kady-wound Skin Appearance) Assessed -Temperature (Kady-wound Skin No Abnormality Appearance) (Pt Warm) -Tenderness on Palpation (Kady-wound No Skin Appearance) -Ulcer Cleansing Rinsed/ Irrigated with Saline -Foul Odor after Cleansing No -Anesthetic Used 5% Lidocaine Gel Lower Limb Edema Present NA - Nurse 2 - General Ulcer CM Notes Start: 07/20/24 13:54 Freq: Status: Active Protocol: Activity Type Activity Date Activity User E-sign Co-sign Detail Recorded Client Recorded Date Recorded By Document 07/20/24 14:05 [email or web address] [id number] 07/20/24 14:07 07/20/24 14:05 Wound Center Nurse 2 #1 LT HIP POST OP -Correct Patient Yes -Correct Side, Site, Position No -Correct Procedure No -Procedure Performed No -Post Debridement (cm) - Length 0 -Post Debridement (cm) - Width 0 -Post Debridement (cm) - Depth 0 -Total Square (Post) (cm) 0 -Area of Debridement (cm) - Length 0 -Area of Debridement (cm) - Width 0 -Total Square (Area) (cm) 0 -Wound/Ulcer Outcome Healed- Epithelialized Pain Scale: 0-10 Numeric Is Patient Pain Free? Yes - Nurse 3 - General Ulcer D/C NN Start: 07/20/24 13:54 Freq: Status: Active Protocol: Activity Type Activity Date Activity User E-sign Co-sign Detail Recorded Client Recorded Date Recorded By Document 07/20/24 14:16 MICHAELA [id number] 07/20/24 14:16 07/20/24 14:16 Is Patient Pain Free? Yes WC - Visit Discharge Discharge Condition Stable Transportation Private Auto Medication Reconcilliation completed & No provided to patient/care provider Clinical Summary of Care Provided Yes Notes: atb ointment and bandaid Assessment/Plan Assessment/Plan (1) Open wnd hip/thigh-complicated: CODE(S): S71.009A - Unspecified open wound, unspecified hip, initial encounter; S71.109A - Unspecified open wound, unspecified thigh, initial encounter PLAN: Patient has a relatively superficial left anterior hip wound without any exposed hardware. Following removal of the debris and the necrotic tissue at the base of the wound, the wound looked significantly healthier with beefy red granulation tissue. Plan for wet-to-dry dressings twice daily with Dakin's until the wound VAC arrives (ordered 3 times per week wound VAC changes). Anticipate wound VAC for definitive therapy Follow-up in the wound care center weekly on Mondays or sooner if concerns of infection Plan from 25 May 2024: Making improvements with VAC changes. Should continue VAC changes and let the wound granulate and healing. Patient happy with the plan. Follow-up in 1 week for wound check. Plan from 01 June 2024: Okay to place occlusive dressing and shower (no getting wound wet) in between VAC changes. Continue doxycycline 100 mg p.o. twice daily per orthopedics request ([facility] agrees). Continue 3 times per week VAC changes. Anticipate closure of wound with VAC changes. Plan from 08 June 2024: Continue VAC changes 3 times per week. Follow-up in 2 weeks. Continue plan for doxycycline and occlusive dressing during showers. Plan from 22 June 2024: Doing well overall. Okay to discontinue/hold wound VAC for now (bring to next appointment). Follow-up in 1 week. Plan for Rebekah dressings daily for 1 week. Plan from 29 June 2024: Continue Rebekah dressings daily for 1 week Making significant progress Okay for showers Do not submerge underwater Follow-up in 2 weeks Plan from 20 Jul 2024: Nearly healed. Patient will continue to do Band-Aid and Neosporin for couple of days until completely reepithelialized. He will call if he is having issues with a small area of raw skin, otherwise he will follow-up as needed. Patient happy with the plan.
--- NOTE | 2024-07-21 13:03 | WC ---
L HIP 07/20/24
== END 2024-08-01 23:59 | disposition home or self-care (01) ==
LOC: WC 14:07
PROVIDERS: PCP Nurse Practitioner Family; Referring Provider Surgery Plastic and Reconstructive Surgery; Visit Provider Surgery Plastic and Reconstructive Surgery
DX: S71.009A Unspecified open wound, unspecified hip, initial encounter (principal); Z79.01 Long term (current) use of anticoagulants; D68.51 Activated protein C resistance; Z96.642 Presence of left artificial hip joint; W19.XXXA Unspecified fall, initial encounter
CPT/HCPCS: 99213; G0463

== ENCOUNTER → 2024-09-29 | Outpatient (CLI) | payer MEDICARE, OTHER, SELFPAY | END | disposition home or self-care (01) | LOC: LABSPEC 14:04 | PROVIDERS: PCP Nurse Practitioner Family; Referring Provider Nurse Practitioner Family; Visit Provider Nurse Practitioner Family | DX: N39.0 Urinary tract infection, site not specified (principal) | CPT/HCPCS: 87077; 87086; 87088; 87186 ==